=== PATIENT | male | born 1935 | race Caucasian/White ===

== ENCOUNTER 2016-08-20 16:39 | Observation (INO) ==
[2016-08-20] MEDS ORDERED: Aspirin 81 MG TAB.CHEW PO ONE (17:28)
[2016-08-20 18:38] LABS: Basophils % 0.6 %; Eosinophils # 0.2 K/mcL (0.0-0.6); Eosinophils % 3.3 %; Hemoglobin 11.2 g/dL (12.9-16.9); Immature Granulocytes % 1.5 % (0-4); Lymphocytes # 1.5 K/mcL (0.6-4.6); Lymphocytes % 30.1 %; Mean Corpuscular HGB Conc 32.9 g/dL (31.6-35.5); Mean Corpuscular Hemoglobin 31.9 pg (28.0-33.3); Mean Corpuscular Volume 96.9 fL (83.0-100.0); Mean Platelet Volume 9.6 fL (9.4-12.4); Monocytes # 0.4 K/mcL (0.0-1.3); Monocytes % 8.9 %; Neutrophils # 2.7 K/mcL (1.6-8.9); Platelet Count 209 K/mcL (140-400); Red Blood Count 3.51 M/mcL (4.19-5.50); Red Cell Distribution Width 12.5 % (11.5-14.5); Segmented Neutrophils % 55.6 %
[2016-08-20 18:47] LABS: Prothrombin Time 10.7 Seconds (9.4-12.1)
[2016-08-20 18:50] LABS: Activated Partial Thrombo Time 19.6 Seconds (26.0-36.0)
[2016-08-20 18:52] LABS: Calcium 9.2 mg/dL (8.6-10.8); Potassium 4.5 mEq/L (3.5-4.5)
--- NOTE | 2016-08-20 18:55 | Emergency Department Note ---
Disposition Clinical Impression: Chest pain, rule out acute myocardial infarction Disposition: Still a Patient Condition: Good [facility]Primary Care Provider[facility] - Forms: ED Satisfaction Letter Chest Pain HPI - General Chief Complaint: ED Chest Pain Stated Complaint: Chest pain Time Seen by Provider: 08/20/16 16:49 Source: patient, family Mode of arrival: ambulatory Limitations: age, other Vital Signs Reviewed: Yes Nursing Notes Reviewed: Yes - History of Present Illness HPI Narrative: 81-year-old male presents with concerns of chest pain. Patient states that he developed chest pain that was described as a left sternal pressure associated with nausea, diaphoresis and shortness of breath last night. He was evaluated at [facility] and was observed overnight with multiple negative troponins. Patient states after leaving [facility] he had worsening neck and left shoulder pain. He states that this pain improves with nitroglycerin but then returns shortly thereafter. Severity scale (1-10): 0 - Related Data Home Medications Medication Instructions Recorded Confirmed Aspirin Enteric Coated [Aspirin EC] 81 mg PO DAILY 05/10/15 11/22/15 Carvedilol [Coreg] 6.25 mg PO BID 05/10/15 11/22/15 Clopidogrel [Plavix] 75 mg PO DAILY 05/10/15 11/22/15 Finasteride [Proscar] 5 mg PO DAILY 05/10/15 11/22/15 Fluticasone Propionate Nasal 50 mcg NS DAILY 05/10/15 11/22/15 [Flonase] Furosemide [Lasix] 40 mg PO DAILY 05/10/15 11/22/15 Isosorbide MONOnitrate (24 HR) 180 mg PO DAILY 05/10/15 11/22/15 [Imdur] Levothyroxine [Synthroid] 112 mcg PO DAILY 05/10/15 11/22/15 Magnesium Oxide [Mag-Ox] 400 mg PO BID 05/10/15 11/22/15 Nitroglycerin [Nitrostat] 0.4 mg SL Q5M PRN 05/10/15 11/22/15 Pantoprazole Sodium 40 mg PO DAILY 05/10/15 11/22/15 Potassium Chloride 20 meq PO DAILY 05/10/15 11/22/15 Ranolazine [Ranexa] 1,000 mg PO BID 05/10/15 11/22/15 TraZODone 250 mg PO HS 05/10/15 11/22/15 Venlafaxine [Effexor] 75 mg PO BID 05/10/15 11/22/15 Vit B Cmplx 3/FA/Vit C/Biotin 1 tab PO DAILY 05/10/15 11/22/15 [[employer] Rx Tablet] Amlodipine Besylate 2.5 mg PO DAILY 11/22/15 11/22/15 Atorvastatin Calcium [Lipitor] 80 mg PO HS 11/22/15 11/22/15 Ergocalciferol (VITAMIN D2) 400 unit PO DAILY 11/22/15 11/22/15 [Vitamin D] Polyethylene Glycol 3350 [MiraLAX] 17 gm PO DAILY 11/22/15 11/22/15 Previous Rx's Medication Instructions Recorded Multivit/Ca/Min/Fe/FA [Thera M 1 tab PO DAILY tablet 06/26/15 Plus] Allergies Allergy/AdvReac Type Severity Reaction Status Date / Time gabapentin Allergy Nausea Verified 11/22/15 09:18 lisinopril Allergy Anaphylaxis Verified 11/22/15 09:18 pregabalin [From Lyrica] Allergy See Verified 11/22/15 09:18 Comments All systems ED: reviewed and negative except as stated. Constitutional: Denies: fever, chills, weakness Cardiovascular: Reports: chest pain, dyspnea on exertion. Denies: palpitations , syncope, paroxysmal nocturnal dyspnea Respiratory: Denies: cough, dyspnea, wheezes Gastrointestinal: Denies: abdominal pain, nausea Genitourinary: Denies: urgency, dysuria Musculoskeletal: Reports: neck pain Integumentary: Denies: rash, abrasion Neurological: Denies: weakness, numbness, paresthesias Chest Pain PMH - Past Medical History Medical history: Reports: cardiomyopathy, CHF, coronary artery disease, CVA, diabetes, GERD, hyperlipidemia, hypertension, myocardial infarction, thyroid disease Surgical history: Reports: cholecystectomy, coronary bypass (CABG), pacemaker/ AICD Psychiatric history: Reports: PTSD - Social History Smoking Status: Former smoker Alcohol use: Reports: none Drug use: Reports: none Physical Exam General: Alert and in no acute distress Skin: Warm, dry, intact Head: Normocephalic and atraumatic Neck: Supple, trachea midline and no tenderness Cardiovascular: RRR, no murmur, normal perfusion Respiratory: CTAB, no wheezing, cough, or respiratory distress Musculoskeletal: Normal strength, no tenderness, swelling or deformity GI: Soft, nontender, nondistended. Bowel sounds present Neuro: A&O to person, place, time and situation. No focal deficits noted on exam Psychiatric: cooperative and appropriate mood and affect. - General Limitations: age, other Course Vital Signs Temperature 98.1 F 08/20/16 16:42 Pulse Rate 72 08/20/16 16:42 Respiratory Rate 18 08/20/16 16:42 Blood Pressure 132/76 08/20/16 16:42 O2 Sat by Pulse Oximetry 97 08/20/16 16:42 Temperature 98.1 F 08/20/16 16:42 Pulse Rate 69 08/20/16 18:48 Respiratory Rate 18 08/20/16 18:48 Blood Pressure 113/66 08/20/16 18:48 O2 Sat by Pulse Oximetry 97 08/20/16 18:48 Oxygen Delivery Oxygen Delivery Room Air Chest Pain - Medical Records Medical records reviewed: Yes I reviewed the patient's medical records. - Lab Data Lab results reviewed: Yes I reviewed the patient's lab results. Result diagrams: 08/20/16 18:31 08/20/16 18:31 Lab Results 08/20/16 08/20/16 08/20/16 Range/Units 18:31 18:31 18:31 WBC 4.8 (4.3-11.1) K/mcL RBC 3.51 L (4.19-5.50) M/mcL Hgb 11.2 L (12.9-16.9) g/dL Hct 34.0 L (37.5-50.1) % MCV 96.9 (83.0-100.0) fL MCH 31.9 (28.0-33.3) pg MCHC 32.9 (31.6-35.5) g/dL RDW 12.5 (11.5-14.5) % Plt Count 209 (140-400) K/mcL MPV 9.6 (9.4-12.4) fL Immature Gran % 1.5 (0-4) % Seg Neutrophils % 55.6 % Lymphocytes % 30.1 % Monocytes % 8.9 % Eosinophils % 3.3 % Basophils % 0.6 % Neutrophils # 2.7 (1.6-8.9) K/mcL Lymphocytes # 1.5 (0.6-4.6) K/mcL Monocytes # 0.4 (0.0-1.3) K/mcL Eosinophils # 0.2 (0.0-0.6) K/mcL Basophils # 0.0 (0.0-0.2) K/mcL PT 10.7 (9.4-12.1) Seconds INR 1.0 APTT 19.6 L (26.0-36.0) Seconds Sodium 137 (136-145) mEq/L Potassium 4.5 (3.5-4.5) mEq/L Chloride 105 (98-109) mEq/L Carbon Dioxide 23 (19-29) mEq/L BUN 19 (8-26) mg/dL Creatinine 1.47 H (0.72-1.25) mg/dL Est GFR ( Amer) 56 L (> 60) Est GFR (Non-Af Amer) 46 L (> 60) BUN/Creatinine Ratio 13 (6-26) Glucose 190 H (70-99) mg/dL Calculated Osmolality 291 (280-300) Calcium 9.2 (8.6-10.8) mg/dL Troponin I (0-0.03) ng/mL 08/20/16 Range/Units 18:31 WBC (4.3-11.1) K/mcL RBC (4.19-5.50) M/mcL Hgb (12.9-16.9) g/dL Hct (37.5-50.1) % MCV (83.0-100.0) fL MCH (28.0-33.3) pg MCHC (31.6-35.5) g/dL RDW (11.5-14.5) % Plt Count (140-400) K/mcL MPV (9.4-12.4) fL Immature Gran % (0-4) % Seg Neutrophils % % Lymphocytes % % Monocytes % % Eosinophils % % Basophils % % Neutrophils # (1.6-8.9) K/mcL Lymphocytes # (0.6-4.6) K/mcL Monocytes # (0.0-1.3) K/mcL Eosinophils # (0.0-0.6) K/mcL Basophils # (0.0-0.2) K/mcL PT (9.4-12.1) Seconds INR APTT (26.0-36.0) Seconds Sodium (136-145) mEq/L Potassium (3.5-4.5) mEq/L Chloride (98-109) mEq/L Carbon Dioxide (19-29) mEq/L BUN (8-26) mg/dL Creatinine (0.72-1.25) mg/dL Est GFR ( Amer) (> 60) Est GFR (Non-Af Amer) (> 60) BUN/Creatinine Ratio (6-26) Glucose (70-99) mg/dL Calculated Osmolality (280-300) Calcium (8.6-10.8) mg/dL Troponin I 0.02 (0-0.03) ng/mL - Radiology Data Radiology results reviewed: Yes I reviewed the patient's radiology results. - EKG Data EKG attestation: Yes I reviewed and interpreted this EKG. EKG results narrative: ECG - interpreted by ED physician. Rate 73 AV paced, no STEMI Heart Score - Score History: Moderately Suspicious EKG: Normal Age: Greater than 65 Risk Factors: Equal/Greater than 3 risk factor or history of atherosclerotic disease Troponin: Less than normal limit HEART Score Total: 5 S.B.A.R. - S.B.A.R. Transition of Care: 1900: Patient signed out to Day physician pending labs and dispo
--- NOTE | 2016-08-20 19:07 | Emergency Department Note ---
Disposition Clinical Impression: Chest pain, rule out acute myocardial infarction Disposition: Still a Patient Condition: Good [facility]errals: [facility] [Primary Care Provider[facility] - Forms: ED Satisfaction Letter General Adult HPI - General Chief complaint: ED Chest Pain Stated complaint: Chest pain Time Seen by Provider: 08/20/16 16:49 Source: patient, family Mode of arrival: ambulatory Limitations: age, other - History of Present Illness Pain Scale: 0 - Related Data Home Medications Medication Instructions Recorded Confirmed Aspirin Enteric Coated [Aspirin EC] 81 mg PO DAILY 05/10/15 11/22/15 Carvedilol [Coreg] 6.25 mg PO BID 05/10/15 11/22/15 Clopidogrel [Plavix] 75 mg PO DAILY 05/10/15 11/22/15 Finasteride [Proscar] 5 mg PO DAILY 05/10/15 11/22/15 Fluticasone Propionate Nasal 50 mcg NS DAILY 05/10/15 11/22/15 [Flonase] Furosemide [Lasix] 40 mg PO DAILY 05/10/15 11/22/15 Isosorbide MONOnitrate (24 HR) 180 mg PO DAILY 05/10/15 11/22/15 [Imdur] Levothyroxine [Synthroid] 112 mcg PO DAILY 05/10/15 11/22/15 Magnesium Oxide [Mag-Ox] 400 mg PO BID 05/10/15 11/22/15 Nitroglycerin [Nitrostat] 0.4 mg SL Q5M PRN 05/10/15 11/22/15 Pantoprazole Sodium 40 mg PO DAILY 05/10/15 11/22/15 Potassium Chloride 20 meq PO DAILY 05/10/15 11/22/15 Ranolazine [Ranexa] 1,000 mg PO BID 05/10/15 11/22/15 TraZODone 250 mg PO HS 05/10/15 11/22/15 Venlafaxine [Effexor] 75 mg PO BID 05/10/15 11/22/15 Vit B Cmplx 3/FA/Vit C/Biotin 1 tab PO DAILY 05/10/15 11/22/15 [Body Shop Worker-[employer] Rx Tablet] Amlodipine Besylate 2.5 mg PO DAILY 11/22/15 11/22/15 Atorvastatin Calcium [Lipitor] 80 mg PO HS 11/22/15 11/22/15 Ergocalciferol (VITAMIN D2) 400 unit PO DAILY 11/22/15 11/22/15 [Vitamin D] Polyethylene Glycol 3350 [MiraLAX] 17 gm PO DAILY 11/22/15 11/22/15 Previous Rx's Medication Instructions Recorded Multivit/Ca/Min/Fe/FA [Thera M 1 tab PO DAILY tablet 06/26/15 Plus] Allergies Allergy/AdvReac Type Severity Reaction Status Date / Time gabapentin Allergy Nausea Verified 11/22/15 09:18 lisinopril Allergy Anaphylaxis Verified 11/22/15 09:18 pregabalin [From Lyrica] Allergy See Verified 11/22/15 09:18 Comments Past Medical History - Past Medical History Medical history: Reports: cardiomyopathy, CHF, coronary artery disease, CVA, diabetes, GERD, hyperlipidemia, hypertension, myocardial infarction, thyroid disease Surgical history: Reports: cholecystectomy, coronary bypass (CABG), pacemaker/ AICD Psychiatric history: Reports: PTSD - Social History Smoking Status: Former smoker Smokeless Tobacco Status: No Alcohol use: Reports: none Drug use: Reports: none Physical Exam - General Limitations: age, other Course Vital Signs Temperature 98.1 F 08/20/16 16:42 Pulse Rate 72 08/20/16 16:42 Respiratory Rate 18 08/20/16 16:42 Blood Pressure 132/76 08/20/16 16:42 O2 Sat by Pulse Oximetry 97 08/20/16 16:42 Temperature 98.1 F 08/20/16 16:42 Pulse Rate 69 08/20/16 18:48 Respiratory Rate 18 08/20/16 18:48 Blood Pressure 113/66 08/20/16 18:48 O2 Sat by Pulse Oximetry 97 08/20/16 18:48 Oxygen Delivery Oxygen Delivery Room Air Medical Decision Making - Lab Data Result diagrams: 08/20/16 18:31 08/20/16 18:31 Lab Results 08/20/16 08/20/16 08/20/16 Range/Units 18:31 18:31 18:31 WBC 4.8 (4.3-11.1) K/mcL RBC 3.51 L (4.19-5.50) M/mcL Hgb 11.2 L (12.9-16.9) g/dL Hct 34.0 L (37.5-50.1) % MCV 96.9 (83.0-100.0) fL MCH 31.9 (28.0-33.3) pg MCHC 32.9 (31.6-35.5) g/dL RDW 12.5 (11.5-14.5) % Plt Count 209 (140-400) K/mcL MPV 9.6 (9.4-12.4) fL Immature Gran % 1.5 (0-4) % Seg Neutrophils % 55.6 % Lymphocytes % 30.1 % Monocytes % 8.9 % Eosinophils % 3.3 % Basophils % 0.6 % Neutrophils # 2.7 (1.6-8.9) K/mcL Lymphocytes # 1.5 (0.6-4.6) K/mcL Monocytes # 0.4 (0.0-1.3) K/mcL Eosinophils # 0.2 (0.0-0.6) K/mcL Basophils # 0.0 (0.0-0.2) K/mcL PT 10.7 (9.4-12.1) Seconds INR 1.0 APTT 19.6 L (26.0-36.0) Seconds Sodium 137 (136-145) mEq/L Potassium 4.5 (3.5-4.5) mEq/L Chloride 105 (98-109) mEq/L Carbon Dioxide 23 (19-29) mEq/L BUN 19 (8-26) mg/dL Creatinine 1.47 H (0.72-1.25) mg/dL Est GFR ( Amer) 56 L (> 60) Est GFR (Non-Af Amer) 46 L (> 60) BUN/Creatinine Ratio 13 (6-26) Glucose 190 H (70-99) mg/dL Calculated Osmolality 291 (280-300) Calcium 9.2 (8.6-10.8) mg/dL Troponin I (0-0.03) ng/mL 08/20/16 Range/Units 18:31 WBC (4.3-11.1) K/mcL RBC (4.19-5.50) M/mcL Hgb (12.9-16.9) g/dL Hct (37.5-50.1) % MCV (83.0-100.0) fL MCH (28.0-33.3) pg MCHC (31.6-35.5) g/dL RDW (11.5-14.5) % Plt Count (140-400) K/mcL MPV (9.4-12.4) fL Immature Gran % (0-4) % Seg Neutrophils % % Lymphocytes % % Monocytes % % Eosinophils % % Basophils % % Neutrophils # (1.6-8.9) K/mcL Lymphocytes # (0.6-4.6) K/mcL Monocytes # (0.0-1.3) K/mcL Eosinophils # (0.0-0.6) K/mcL Basophils # (0.0-0.2) K/mcL PT (9.4-12.1) Seconds INR APTT (26.0-36.0) Seconds Sodium (136-145) mEq/L Potassium (3.5-4.5) mEq/L Chloride (98-109) mEq/L Carbon Dioxide (19-29) mEq/L BUN (8-26) mg/dL Creatinine (0.72-1.25) mg/dL Est GFR ( Amer) (> 60) Est GFR (Non-Af Amer) (> 60) BUN/Creatinine Ratio (6-26) Glucose (70-99) mg/dL Calculated Osmolality (280-300) Calcium (8.6-10.8) mg/dL Troponin I 0.02 (0-0.03) ng/mL Attestation Statement - Attestation Attestation: Care assumed from at 7 PM pending troponin. Patient with a history of coronary artery disease, pacemaker presents with intermittent chest pain and left-sided neck pain. He was concerned that his pain is cardiac. He sees Dr. Estrada. He denies pain at the time of my exam. He is resting comfortably. Labs reviewed by me showing chronic renal insufficiency. EKG shows paced rhythm. I will request admission to the medicine service 19:30: Rianna Aquino accepts admission
[2016-08-20] MEDS ORDERED: Naloxone 0.4 MG/ML INJ IVP PRN (21:52)
[2016-08-20] MEDS ORDERED: Acetaminophen 325 MG TABLET PO PRN (21:52)
[2016-08-20] MEDS ORDERED: *HR* Morphine 2 MG/ML SYRINGE IVP PRN (21:59)
[2016-08-20] MEDS ORDERED: Dextrose Gel 15 GM PO PRN ×2 (21:59)
[2016-08-20] MEDS ORDERED: Nitroglycerin 0.4 MG TAB.SUBL SL PRN (21:59)
[2016-08-20] MEDS ORDERED: *HR* Dextrose 50 % in Water (Syg) 50 ML SYRINGE IVP PRN (21:59)
[2016-08-20] MEDS ORDERED: D5% in Water 1,000 ML IV PRN (21:59)
--- NOTE | 2016-08-20 22:17 | Internal Med History&Physical ---
Date of Encounter: 08/20/16 Time of Encounter: 21:30 Assessment and Plan (1) Unstable angina Current visit: Yes Status: Acute Suspect the patient has unstable angina. Trend troponins. Pt is known to have occlusive CAD, not amenable to revascularization. Treatment with enoxaparin 0.75 mg/Kg Q12H. continue aspirin Plavix. Patient is already on Ranexa and high -dose of ISMN. Cardiology consultation. (2) Abdominal pain Current visit: Yes Status: Acute Patient has a long history of abdominal pain but is getting worse. Patient is concerned about the abdominal pain. No prior CT scan of the abdomen and the current system. Will obtain CT scan of the abdomen/pelvis with oral contrast ( no IV contrast due to CKD) Qualifiers: Abdominal location: left upper quadrant Qualified Code(s): R10.12 - Left upper quadrant pain (3) Chest pain Current visit: No Status: Acute Possible unstable angina. Trend troponins. Qualifiers: Chest pain type: chest pain due to myocardial ischemia Ischemic chest pain type: unstable angina pectoris Qualified Code(s): I20.0 - Unstable angina (4) CAD in [place] artery Current visit: No Status: Chronic Pt is known to have occlusive CAD. Continue ASA, clopidogrel, ISMN, Ranexa and beta darron (5) CHF (congestive heart failure) Current visit: No Status: Chronic Recent echo showed LVEF of 40-45%. No acute exacerbation Qualifiers: Congestive heart failure type: systolic Congestive heart failure chronicity : chronic Qualified Code(s): I50.22 - Chronic systolic (congestive) heart failure (6) CKD (chronic kidney disease) Current visit: No Status: Chronic Monitor renal function. Avoid nephrotoxic meds Qualifiers: Chronic kidney disease stage: stage 3 (moderate) Qualified Code(s): N18.3 - Chronic kidney disease, stage 3 (moderate) (7) Hypothyroidism Current visit: No Status: Chronic Continue Synthroid Qualifiers: Hypothyroidism type: unspecified Qualified Code(s): E03.9 - Hypothyroidism , unspecified (8) Pacemaker Current visit: No Status: Chronic (9) Type 2 diabetes mellitus Current visit: No Status: Chronic Start on sliding scale insulin Qualifiers: Diabetes mellitus complication status: with neurologic complications Diabetes mellitus complication detail: with polyneuropathy Diabetes mellitus mcfp insulin use: without terminal operations supervisor use Qualified Code(s): E11.42 - Type 2 diabetes mellitus with diabetic polyneuropathy (10) Pulmonary nodule Current visit: Yes Status: Acute Patient had chest x-ray done at the [facility] on 08/19/16, which reported 8 millimeters nodular density overlying the lower thoracic vertebral body on lateral view, not seen on prior imaging. The finding most likely represent confluence of shadows but pulmonary nodule cannot be excluded. Further evaluation with the chest CT or reevaluation at the follow-up chest x- rays is recommended. Chest x-ray (single view) done in this admission did not report pulmonary nodule.. (11) DVT prophylaxis Current visit: Yes Status: Acute Internal Medicine - H&P: HPI Chief complaint: Chest pain Admitted From: Home Plans for Post Hospital Care: Home History of present illness: Mr. Allen is a 81 year old male With PMH significant for cardiomyopathy ( ischemic), CHF (Echo: (07/21/16): LVEF: 40-45%. Basal to mid inferior and inferoseptal segments hypokinetic) s/p AICD / pacemaker, coronary artery disease s/p CABG, CVA, diabetes, GERD, hyperlipidemia, hypertension, hypothyroidism. He reports chest pain for a few days and needed to use nitroglycerine frequently. The day before yesterday, he was exposed to cold, while he was trying to get into his car. He had chest pain and used nitroglycerine x 3 and went to [facility]. He reports that he had a chest x-ray and was told that it was abnormal. He apparently did not like the care and left. He presents to the ER with h/o left sided chest pain / pressure, radiating to the neck and left facial numbness; unrelated to exertion used nitroglycerine without relief, but went away spontaneously. Reports intermittent shortness of breath and nausea. No vomiting. No cough / expectoration / fever / chills. He reports pain in the left upper quadrant and lower quadrant area 8/10. He reports abdominal pain for many months but a little worse. Apparently he was evaluated by lead data entry operator in the past. He reports BPH and frequent urination. No significant change to bowel habits constipation followed by loose stools. He was evaluated in the ER troponin was negative. Admitted to the hospitalist for further management. I have reviewed the CXR result from [facility] - Patient had chest x-ray done at the [facility] on 08/19/16, which reported 8 millimeters nodular density overlying the lower thoracic vertebral body on lateral view, not seen on prior imaging. The finding most likely represent confluence of shadows but pulmonary nodule cannot be excluded. Further evaluation with the chest CT or reevaluation at the follow-up chest x-rays is recommended. Past Med Surg Social Fam HX - Past Medical History Medical history: cardiomyopathy, CHF, coronary artery disease, CVA, diabetes, GERD, hyperlipidemia, hypertension, myocardial infarction, thyroid disease Psychiatric history: PTSD - Past Surgical History Surgical History: cholecystectomy, coronary bypass (CABG), pacemaker/AICD - Social History Smoking Status: Former smoker Smokeless Tobacco Status: No Alcohol use: none Drug use: none - Family History Father Living Status: Hx Family Cardiac Disorders: Yes Mother Living Status: Hx Family Cardiac Disorders: Yes Hx Family Respiratory Disorders: Yes Hx Family Cancer: Yes Hx Family GI Disorders: No Hx Family Endocrine Disorder: Yes Hx Family Neuromuscular Disorders: No Hx Family Neurologic Disorders: No Hx Family HEENT Disorders: No Hx Family Autoimmune Disorders: No Internal Medicine - H&P: Meds Aspirin Enteric Coated [Aspirin EC] 81 mg PO DAILY 05/10/15 [History] Carvedilol [Coreg] 6.25 mg PO BID 05/10/15 [History] Clopidogrel [Plavix] 75 mg PO DAILY 05/10/15 [History] Finasteride [Proscar] 5 mg PO DAILY 05/10/15 [History] Fluticasone Propionate Nasal [Flonase] 50 mcg NS DAILY 05/10/15 [History] Furosemide [Lasix] 40 mg PO DAILY 05/10/15 [History] Isosorbide MONOnitrate (24 HR) [Imdur] 180 mg PO DAILY 05/10/15 [History] Levothyroxine [Synthroid] 112 mcg PO DAILY 05/10/15 [History] Magnesium Oxide [Mag-Ox] 400 mg PO BID 05/10/15 [History] Nitroglycerin [Nitrostat] 0.4 mg SL Q5M PRN 05/10/15 [History] Pantoprazole Sodium 40 mg PO DAILY 05/10/15 [History] Potassium Chloride 20 meq PO DAILY 05/10/15 [History] Ranolazine [Ranexa] 1,000 mg PO BID 05/10/15 [History] TraZODone 250 mg PO HS 05/10/15 [History] Venlafaxine [Effexor] 75 mg PO BID 05/10/15 [History] Vit B Cmplx 3/FA/Vit C/Biotin [[employer] Rx Tablet] 1 tab PO DAILY 05/10/15 [ History] Multivit/Ca/Min/Fe/FA [Thera M Plus] 1 tab PO DAILY tablet 06/26/15 [Rx] Amlodipine Besylate 2.5 mg PO DAILY 11/22/15 [History] Atorvastatin Calcium [Lipitor] 80 mg PO HS 11/22/15 [History] Ergocalciferol (VITAMIN D2) [Vitamin D] 400 unit PO DAILY 11/22/15 [History] Polyethylene Glycol 3350 [MiraLAX] 17 gm PO DAILY 11/22/15 [History] Allergies gabapentin Allergy (Verified 11/22/15 09:18) Nausea lisinopril Allergy (Verified 11/22/15 09:18) Anaphylaxis pregabalin [From Lyrica] Allergy (Verified 11/22/15 09:18) See Comments jerking All Systems PM: A 10-system review of systems was performed and is negative for pertinent findings except as documented above in the HPI. - Constitutional Vitals: Temp Pulse Resp BP Pulse Ox 97.4 F L 69 16 138/77 97 08/20/16 21:21 08/20/16 21:21 08/20/16 21:21 08/20/16 21:21 08/20/16 21:21 Exam: General: Not in acute distress at the time of my evaluation HEENT: Oral mucosa is moist. No conjunctival palor or scleral icterus Neck: No obvious neck swellings Lungs: Clear to auscultation Cardiac: Regular rate and rhythm. No significant murmurs. No chest wall tenderness Abdomen: Soft, mild left abdominal tenderness. Bowel sounds present Genitourinary: No vasquez catheter Neurological: Alert and oriented. No gross localizing deficits Psych: Not agrressive or agitated Extremities: trace leg edema Skin: No generalized rash Internal Med - H&P Results - Labs CBC & Chem 7: 08/20/16 18:31 08/20/16 18:31 Labs: Laboratory Last Values WBC 4.8 K/mcL (4.3-11.1) 08/20/16 18:31 RBC 3.51 M/mcL (4.19-5.50) L 08/20/16 18:31 Hgb 11.2 g/dL (12.9-16.9) L 08/20/16 18:31 Hct 34.0 % (37.5-50.1) L 08/20/16 18:31 MCV 96.9 fL (83.0-100.0) 08/20/16 18:31 MCH 31.9 pg (28.0-33.3) 08/20/16 18:31 MCHC 32.9 g/dL (31.6-35.5) 08/20/16 18:31 RDW 12.5 % (11.5-14.5) 08/20/16 18:31 Plt Count 209 K/mcL (140-400) 08/20/16 18:31 MPV 9.6 fL (9.4-12.4) 08/20/16 18:31 Immature Gran % 1.5 % (0-4) 08/20/16 18:31 Seg Neutrophils % 55.6 % 08/20/16 18:31 Lymphocytes % 30.1 % 08/20/16 18:31 Monocytes % 8.9 % 08/20/16 18:31 Eosinophils % 3.3 % 08/20/16 18:31 Basophils % 0.6 % 08/20/16 18:31 Neutrophils # 2.7 K/mcL (1.6-8.9) 08/20/16 18:31 Lymphocytes # 1.5 K/mcL (0.6-4.6) 08/20/16 18:31 Monocytes # 0.4 K/mcL (0.0-1.3) 08/20/16 18:31 Eosinophils # 0.2 K/mcL (0.0-0.6) 08/20/16 18:31 Basophils # 0.0 K/mcL (0.0-0.2) 08/20/16 18:31 PT 10.7 Seconds (9.4-12.1) 08/20/16 18:31 INR 1.0 08/20/16 18:31 APTT 19.6 Seconds (26.0-36.0) L 08/20/16 18:31 Sodium 137 mEq/L (136-145) 08/20/16 18:31 Potassium 4.5 mEq/L (3.5-4.5) 08/20/16 18:31 Chloride 105 mEq/L (98-109) 08/20/16 18:31 Carbon Dioxide 23 mEq/L (19-29) 08/20/16 18:31 BUN 19 mg/dL (8-26) 08/20/16 18:31 Creatinine 1.47 mg/dL (0.72-1.25) H 08/20/16 18:31 Est GFR ( Amer) 56 (> 60) L 08/20/16 18:31 Est GFR (Non-Af Amer) 46 (> 60) L 08/20/16 18:31 BUN/Creatinine Ratio 13 (6-26) 08/20/16 18:31 Glucose 190 mg/dL (70-99) H 08/20/16 18:31 POC Glucose 142 (58-89) H 08/20/16 22:45 Calculated Osmolality 291 (280-300) 08/20/16 18:31 Calcium 9.2 mg/dL (8.6-10.8) 08/20/16 18:31 Troponin I 0.02 ng/mL (0-0.03) 08/20/16 22:10 - EKG Data EKG comments: Paced rhythm 08/20/16 22:19 - Impressions ITS Impressions Chest X-Ray 08/20/16 17:28 IMPRESSION: No acute process. D/ / Mark Collins MD / Mark Collins MD Interpreting Provider: Mark Collins MD
[2016-08-21] MEDS ORDERED: traZODone 50 MG TABLET PO SCH (03:18)
[2016-08-21] MEDS ORDERED: Enoxaparin Weight Dosing SQ SCH (06:00)
[2016-08-21] MEDS: Insulin LISPRO 300 UNITS/3 ML VIAL SQ SCH ×2 (07:39→12:33)
[2016-08-21] MEDS ORDERED: Cholecalciferol (D-3) 1,000 UNIT TABLET PO SCH (09:00)
[2016-08-21] MEDS ORDERED: BIOTIN PO SCH (09:00)
[2016-08-21] MEDS ORDERED: Ranolazine 500 MG TAB.ER.12H PO SCH (09:00)
[2016-08-21] MEDS ORDERED: Multivit/Ca/Min/Fe/FA 1 TAB TABLET PO SCH (09:00)
[2016-08-21] MEDS ORDERED: Furosemide 40 MG TABLET PO SCH (09:00)
[2016-08-21] MEDS ORDERED: Aspirin Enteric Coated 81 MG Tablet PO SCH (09:00)
[2016-08-21] MEDS ORDERED: [UNRECOGNIZED DRUG - OTHER] PO SCH (09:00)
[2016-08-21] MEDS ORDERED: Isosorbide MONOnitrate (24 HR) 60 MG TAB.ER.24H PO SCH ×2 (09:00→09:57)
[2016-08-21] MEDS ORDERED: Finasteride 5 MG TABLET PO SCH (09:00)
[2016-08-21] MEDS ORDERED: VIT B CMPLX PO SCH (09:00)
[2016-08-21] MEDS ORDERED: amLODIPine 5 MG TABLET PO SCH (09:00)
[2016-08-21] MEDS ORDERED: Fluticasone Propionate Nasal 50 MCG/SPRAY BOTTLE NS SCH (09:00)
[2016-08-21] MEDS ORDERED: Magnesium Oxide 400 MG TABLET PO SCH (09:00)
--- NOTE | 2016-08-21 09:24 | Cardiology Consult Note ---
<Ibrahima Jack Sara - Last Filed: 08/21/16 09:51> Date of Encounter: 08/21/16 Time of Encounter: 09:23 Assessment and Plan (1) Chest pain Current Visit: Yes Status: Acute Patient reports chronic chest pain. Troponin negative x 3. EKG paced--no change from prior. [facility] 06/2015 Left main 50% stenosis. LAD proximal 80% and mid 100% stenosis. D1 90% stenosis. Circumflex proximal 99% and mid 100% stenosis (right to left collaterals noted). Ramus 100% stenosis (left to left collaterals). RCA proximal mid and distal in-stent restenosis ranging from 40-50%. RPDA 95% stenosis (small vessel). RPL 99% stenosis (small vessel). BUSH to mid LAD patent. SVG grafts occluded. Known hx of significant CAD, prior CABG, redo CABG, and multiple PCI's. Catheterization performed in June 2015 demonstrated significant CAD as described above. No targets for revascularization noted. Medical therapy was recommended. Continue aspirin, Plavix, statin, beta darron, Imdur, and Ranexa therapy. Pt is currently on Imdur 180mg daily. Will increase to 240mg daily. He is on Ranexa 1000mg BID. Recent limited echo 06/2016 shows mildly improved EF, previously 35%, now 40-45% . No further cardiac work-up is warranted as inpt. Recommend close outpt follow-up with Dr. Estrada. Cardiology is signing off. Reconsult PRN. Qualifiers: Chest pain type: chest pain due to myocardial ischemia Ischemic chest pain type: unstable angina pectoris Qualified Code(s): I20.0 - Unstable angina (2) CAD (coronary artery disease) of artery bypass graft Current Visit: No Status: Chronic Most recent [facility] 06/2015--details above. Medical management recommended. ASA, Statin, BB, Plavix, Imdur, Ranexa. Increase Imdur to 240mg daily. Qualifiers: [place] vs. transplanted heart: [place] heart Associated angina: with unspecified angina Qualified Code(s): I25.709 - Atherosclerosis of coronary artery bypass graft(s), unspecified, with unspecified angina pectoris (3) CHF (congestive heart failure) Current Visit: Yes Status: Chronic Recent echo showed LVEF of 40-45%. No acute exacerbation. Pt is euvolemic on exam. Continue BB, Aldactone, Lasix. Qualifiers: Congestive heart failure type: systolic Congestive heart failure chronicity : chronic Qualified Code(s): I50.22 - Chronic systolic (congestive) heart failure (4) Ischemic cardiomyopathy Current Visit: Yes Status: Chronic Limited echo 06/2016 EF 40-45% (previously 35%). BiV-ICD in place. Continue BB, Aldactone, Lasix. No SANTY-I/ARB due to hx of anaphylaxis with SANTY-I. (5) ICD (implantable cardioverter-defibrillator), biventricular, in situ Current Visit: Yes Status: Acute ICD interrogation 05/31/2016: Normal device function. No sustained arrhythmias. Biventricular pacing 98.5%. Discussion w patient/family: The assessment and plan as outlined above was discussed with the patient and/or family members who expressed understanding and agreement. All questions were answered. Thank you for involving us in the care of your patient. Please call with any questions. I will discuss all the above with Dr. Zimmerman and make changes as necessary. History of Present Illness Consult date: 08/21/16 Requesting physician: Devorah Majano Consult reason: chest pain Chief complaint: chest pain History of present illness: Mr. Allen is a 81 year old male with a history of CAD, 4 prior MIs, prior CABG , redo CABG, and multiple PCI's (6 stents per patient). Despite revascularization and medical therapy, EF remained 35%. Pacemaker upgraded to a biventricular ICD in November 2015. Hx of CVA, diabetes, GERD, hyperlipidemia, hypertension, hypothyroidism. He reports chest pain for a few days and needed to use nitroglycerine frequently. The day before yesterday he had chest pain and used nitroglycerine x 3 and went to [facility]. He had a chest x-ray and was told that it was abnormal. He was not happy with his care there and left. He presents to the ER with complaints left sided chest pain / pressure, radiating to the neck and left facial numbness; unrelated to exertion used nitroglycerine without relief, but went away spontaneously. Reports intermittent shortness of breath and nausea. No vomiting. He states he has chronic angina. He follows closely with Dr. Estrada as outpt. Recent limited echo revealed EF mildly improved to 40-45%. Despite definity not all segments were well visualized. Grossly, there was basal to mid inferior wall hypokinesis. Reports states to consider cardiac MRI if clinically indicated. Follow-up scheduled with Dr. Estrada next month. Most recent [facility] 06/2015 medical management was recommended. Troponins have been negative x 3. Past Med Surg Social Fam HX - Past Medical History Medical history: cardiomyopathy, CHF, coronary artery disease, CVA, diabetes, GERD, hyperlipidemia, hypertension, myocardial infarction, thyroid disease Psychiatric history: PTSD - Past Surgical History Surgical History: angioplasty/stent, cholecystectomy, coronary bypass (CABG), pacemaker/AICD - Social History Smoking Status: Former smoker Smokeless Tobacco Status: No Alcohol use: none Drug use: none - Family History Father Living Status: Hx Family Cardiac Disorders: Yes Mother Living Status: Hx Family Cardiac Disorders: Yes Hx Family Respiratory Disorders: Yes Hx Family Cancer: Yes Hx Family GI Disorders: No Hx Family Endocrine Disorder: Yes Hx Family Neuromuscular Disorders: No Hx Family Neurologic Disorders: No Hx Family HEENT Disorders: No Hx Family Autoimmune Disorders: No Medications and Allergies Aspirin Enteric Coated [Aspirin EC] 81 mg PO DAILY 05/10/15 [History] Carvedilol [Coreg] 6.25 mg PO BID 05/10/15 [History] Clopidogrel [Plavix] 75 mg PO DAILY 05/10/15 [History] Finasteride [Proscar] 5 mg PO DAILY 05/10/15 [History] Fluticasone Propionate Nasal [Flonase] 50 mcg NS DAILY 05/10/15 [History] Furosemide [Lasix] 40 mg PO DAILY 05/10/15 [History] Isosorbide MONOnitrate (24 HR) [Imdur] 180 mg PO DAILY 05/10/15 [History] Levothyroxine [Synthroid] 112 mcg PO DAILY 05/10/15 [History] Magnesium Oxide [Mag-Ox] 400 mg PO BID 05/10/15 [History] Nitroglycerin [Nitrostat] 0.4 mg SL Q5M PRN 05/10/15 [History] Pantoprazole Sodium 40 mg PO DAILY 05/10/15 [History] Potassium Chloride 20 meq PO DAILY 05/10/15 [History] Ranolazine [Ranexa] 1,000 mg PO BID 05/10/15 [History] TraZODone 250 mg PO HS 05/10/15 [History] Venlafaxine [Effexor] 75 mg PO BID 05/10/15 [History] Vit B Cmplx 3/FA/Vit C/Biotin [[employer] [facility] Tablet] 1 tab PO DAILY 05/10/15 [ History] Multivit/Ca/Min/Fe/FA [Thera M Plus] 1 tab PO DAILY tablet 06/26/15 [Rx] Amlodipine Besylate 2.5 mg PO DAILY 11/22/15 [History] Atorvastatin Calcium [Lipitor] 80 mg PO HS 11/22/15 [History] Ergocalciferol (VITAMIN D2) [Vitamin D] 400 unit PO DAILY 11/22/15 [History] Polyethylene Glycol 3350 [MiraLAX] 17 gm PO DAILY 11/22/15 [History] Allergies gabapentin Allergy (Verified 11/22/15 09:18) Nausea lisinopril Allergy (Verified 11/22/15 09:18) Anaphylaxis pregabalin [From Lyrica] Allergy (Verified 11/22/15 09:18) See Comments jerking All Systems Review: A 10-system review of systems was performed and is negative for pertinent findings except as documented above in the HPI. - Cardiovascular Cardiovascular: as per HPI, chest pain at rest, chest pain with exertion, dyspnea on exertion, radiating jaw, neck or arm pain - Gastrointestinal Gastrointestinal: nausea Physical Examination Vital Signs, Last 4 Hours Temp Pulse Resp BP Pulse Ox 08/21/16 07:15 97.5 F L 81 18 136/77 97 Vital Signs Temp Pulse Resp BP Pulse Ox 08/21/16 07:15 97.5 F L 81 18 136/77 97 08/20/16 21:21 97.4 F L 69 16 138/77 97 08/20/16 20:03 18 109/65 08/20/16 18:48 69 18 113/66 97 08/20/16 16:42 98.1 F 72 18 132/76 97 Intake and Output 08/20/16 08/21/16 08/21/16 23:59 07:59 15:59 Intake Total 240 / 240 Output Total 400 / 400 Balance -400 / -400 240 / 240 Intake: Oral 240 / 240 Output: Urine 400 / 400 Other: Meal Breakfast Percent of Meal Consumed 75% # Voids 2 Weight 92.079 kg 82.9 kg Blood Glucose* 142 125 Patient Weight 08/21/16 23:59 Weight 82.9 kg General: Conversant, No Apparent Distress HEENT: Atraumatic, Normocephaly, Mucus Membranes Moist Neck: No JVD, Normal carotid pulses Cardiac: Reg Rate and Rhythm, Normal S1 and S2, No Murmur Lungs: Normal Breath Sounds, No Wheeze, Rales, Rhonchi Neuro: Alert and responsive, No focal deficits noted Abdomen: Soft, Non-Tender Skin: No rashes noted on visualized skin Musculoskeletal: No Chest Wall Tenderness Extremities: No Clubbing, No Cyanosis, No Edema, Normal Pulses Results 08/20/16 18:31 08/20/16 18:31 Lab Results 08/20/16 08/21/16 22:10 03:51 Troponin I 0.02 0.02 Short CBC 08/20/16 Range/Units 18:31 WBC 4.8 (4.3-11.1) K/mcL Hgb 11.2 L (12.9-16.9) g/dL Hct 34.0 L (37.5-50.1) % Plt Count 209 (140-400) K/mcL Neutrophils # 2.7 (1.6-8.9) K/mcL BMP 08/20/16 Range/Units 18:31 Sodium 137 (136-145) mEq/L Potassium 4.5 (3.5-4.5) mEq/L Chloride 105 (98-109) mEq/L Carbon Dioxide 23 (19-29) mEq/L BUN 19 (8-26) mg/dL Creatinine 1.47 H (0.72-1.25) mg/dL Glucose 190 H (70-99) mg/dL Calcium 9.2 (8.6-10.8) mg/dL Cardiac Enzymes 08/21/16 08/20/16 08/20/16 Range/Units 03:51 22:10 18:31 Troponin I 0.02 0.02 0.02 (0-0.03) ng/mL Impressions Chest X-Ray 08/20/16 17:28 IMPRESSION: No acute process. D/ / Mark Collins MD / Mark Collins MD Interpreting Provider: Mark Collins MD Active Medications Acetaminophen (Tylenol) 650 mg PO Q6HR PRN PRN Reason: Mild Pain (1-3); fever Stop: 02/19/17 21:53 Amlodipine Besylate (Norvasc) 2.5 mg PO DAILY [facility] Stop: 02/20/17 09:01 Aspirin (Aspirin Ec) 81 mg PO DAILY [facility] Stop: 02/20/17 09:01 Atorvastatin Calcium (Lipitor) 80 mg PO HS [facility] Stop: 02/20/17 21:01 Carvedilol (Coreg) 6.25 mg PO BID [facility] PRN Reason: Protocol Stop: 02/20/17 09:01 Clopidogrel Bisulfate (Plavix) 75 mg PO DAILY [facility] Stop: 02/20/17 09:01 Dextrose/Water (Dextrose 50% (Syg)) 25 ml IVP AD PRN PRN Reason: Hypoglycemia Stop: 02/19/17 22:00 Enoxaparin Sodium (Lovenox) 70 mg 0.75 mg/kg (70 mg) SQ Q12HCO [facility] PRN Reason: Protocol Stop: 02/20/17 22:04 Finasteride (Proscar) 5 mg PO DAILY [facility] PRN Reason: Protocol Stop: 02/20/17 09:01 Fluticasone Propionate (Flonase) 50 mcg NS DAILY [facility] PRN Reason: Protocol Stop: 02/20/17 09:01 Furosemide (Lasix) 40 mg PO DAILY [facility] Stop: 02/20/17 09:01 Glucagon (Glucagen) 1 mg IM ONCE PRN PRN Reason: Hypoglycemia Stop: 02/19/17 22:00 Glucose (Gluctose) 15 gm PO ONCE PRN PRN Reason: Hypoglycemia Stop: 02/19/17 22:00 Glucose (Gluctose) 30 gm PO ONCE PRN PRN Reason: Hypoglycemia Stop: 02/19/17 22:00 Dextrose (Dextrose 5%) 1,000 mls @ 100 mls/hr IV CONT PRN PRN Reason: HYPOGLYCEMIA Stop: 02/19/17 22:00 Insulin Human Lispro (Humalog) 0 units SQ TIDAC [facility] PRN Reason: Protocol Stop: 02/20/17 07:31 Last Admin: 08/21/16 07:39 Dose: Not Given Isosorbide Mononitrate (Imdur) 180 mg PO DAILY [facility] Stop: 02/20/17 09:01 Levothyroxine Sodium (Synthroid) 112 mcg PO DAILY@0630 [facility] Stop: 02/20/17 09:01 Magnesium Oxide (Mag-Ox) 400 mg PO BID [facility] PRN Reason: Protocol Stop: 02/20/17 09:01 Morphine Sulfate (Morphine Sulfate) 2 mg IVP Q2H PRN PRN Reason: Chest Pain Stop: 02/19/17 22:00 Multivitamins/Calcium (Thera M Plus) 1 tab PO DAILY [facility] PRN Reason: Protocol Stop: 02/20/17 09:01 Naloxone HCl (Narcan) 0.4 mg IVP Q2MIN PRN PRN Reason: Opioid Reversal Stop: 02/19/17 21:53 Nitroglycerin (Nitroglycerin) 0.4 mg SL Q5MIN PRN PRN Reason: Chest Pain Stop: 02/19/17 22:00 (Vit B Cmplx 3/Fa/Vit C/Biotin [[employer] [facility] [place] [facility] Tablet] 1 ) 1 tab PO DAILY [facility] Stop: 02/20/17 09:01 Omeprazole (Prilosec) 20 mg PO DAILY [facility] Stop: 02/20/17 09:01 Polyethylene Glycol (Miralax) 17 gm PO DAILY [facility] Stop: 02/20/17 09:01 Potassium Chloride (Potassium Chloride) 20 meq PO DAILY [facility] Stop: 02/20/17 09:01 Ranolazine (Ranexa) 1,000 mg PO BID [facility] Stop: 02/20/17 09:01 Trazodone HCl (Trazodone) 250 mg PO HS [facility] Stop: 02/20/17 03:19 Last Admin: 08/21/16 03:51 Dose: 250 mg Venlafaxine HCl (Effexor) 75 mg PO BID [facility] Stop: 02/20/17 09:01 Vitamin D (Vitamin D) 1,000 unit PO DAILY [facility] Stop: 02/20/17 09:01 - Imaging and Cardiology Chest Xray: report reviewed Echo: report reviewed (Limited echo revealed EF mildly improved to 40-45%. Despite definity not all segments were well visualized. Grossly, there was basal to mid inferior wall hypokinesis. Reports states to consider cardiac MRI if clinically indicated.) Cardiac cath: report reviewed ([facility] performed on 06/25/2015: Left main 50% stenosis. LAD proximal 80% and mid 100% stenosis. D1 90% stenosis. Circumflex proximal 99% and mid 100% stenosis (right to left collaterals noted). Ramus 100 % stenosis (left to left collaterals). RCA proximal mid and distal in-stent restenosis ranging from 40-50%. RPDA 95% stenosis (small vessel). RPL 99% stenosis (small vessel). BUSH to mid LAD patent. SVG grafts occluded. Medical therapy recommended.) - EKG Interpretation EKG results cardiology: personally reviewed (Paced, no significant changes from prior.), other (12 hour tele AVG HR 70, no significant pauses or arrhythmias.) Consult Discharge Plan - Plan [facility] Provider[facility] - <Ramon Zimmerman - Last Filed: 08/21/16 11:25> Date of Encounter: 08/21/16 Assessment and Plan Discussion w patient/family: The assessment and plan as outlined above was discussed with the patient and/or family members who expressed understanding and agreement. All questions were answered. Thank you for involving us in the care of your patient. Please call with any questions. History of Present Illness History of present illness: Mr. Allen is a 81 year old male All Systems Review: A 10-system review of systems was performed and is negative for pertinent findings except as documented above in the HPI. Results 08/20/16 18:31 08/20/16 18:31 Lab Results 08/20/16 08/21/16 08/21/16 22:10 03:51 10:03 Troponin I 0.02 0.02 0.01 - Attending Attestation patient seen and examined patient's chest pain is better history is limited because of previous CVA and possibledementia Vital signs are stable Lungs are clear to auscultation Heart S1-S2 is heard does no S3 no murmurs gallops abdomen is soft nontendEKG reviewed by me showed no acute changes Impression Chest pain probably chronic angina microvascular Status post CABG Both stents plan Increased in the door to max dose continue other medicatiFollow-up with primary wage conciliator in the office
[2016-08-21 11:22] VITALS: BP 124/74
--- NOTE | 2016-08-21 12:27 | Discharge Summary ---
Date of Encounter: 08/21/16 Time of Encounter: 12:00 - Discharge Diagnosis (1) Unstable angina Priority: Primary Status: Resolved Comments: Patient denied chest pain or shortness of breath at time of discharge. Chest x- ray negative. Troponins negative. Seen by cardiology who recommended increasing his Imdur and following up outpatient. (2) Pulmonary nodule Priority: Primary Status: Acute Comments: Nonurgent, recommend repeat CT scan in 6-12 months. Patient stopped smoking back in the 70s. ITS Impressions Abdomen/Pelvis CT 08/21/16 09:15 IMPRESSION: No urinary tract calculi or obstruction. Diverticulosis without acute diverticulitis. Normal appendix. Cholecystectomy. Small clustered noncalcified pulmonary nodules in the right lower lobe, 1 of which measuring 3.9 mm in the other measuring 5.7 mm. Recommend follow up based on Fleischner criteria as below. 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 Diffuse atherosclerotic disease. RECOMMENDATIONS: Fleischner Society guidelines for follow-up and management of pulmonary nodule: Nodule size equals 4-6 mm In a low-risk patient, follow-up CT at 12 months; if unchanged, no further follow-up. In a high-risk patient, initial follow-up CT at 6-12 months then at 18-24 months if no change. Low risk patients include individuals with minimal or absent history of smoking and other known risk factors. High risk patients include individuals with a history of smoking or other known risk factors. Radiology 2005; 237:395-400 D/ / Walter Bustamante MD / Walter Bustamante MD Interpreting Provider: Walter Bustamante MD (3) Abdominal pain Priority: Primary Status: Acute Comments: Acute on chronic to left upper and left lower quadrants. Abdominal CT unremarkable for acute processes. Follow-up outpatient. Patient endorsed a regular appetite and by mouth intake prior to discharge. Possible GI referral at primary care provider's discretion. No acute processes during this admission Qualifiers: Abdominal location: left upper quadrant Qualified Code(s): R10.12 - Left upper quadrant pain (4) DVT prophylaxis Priority: Primary Status: Acute Comments: Subcutaneous Lovenox while admitted (5) ICD (implantable cardioverter-defibrillator) in place Priority: Secondary Status: Chronic Comments: Per cardiology report, ICD was interrogated on 05/31/16 and was functioning normally. (6) CHF (congestive heart failure) Priority: Secondary Status: Chronic Comments: Recent echocardiogram revealing ejection fraction of 40-45%. No acute exacerbation, euvolemic on examination throughout this admission. Continue beta darron, Aldactone, Lasix. Follow-up outpatient. Qualifiers: Congestive heart failure type: systolic Congestive heart failure chronicity : chronic Qualified Code(s): I50.22 - Chronic systolic (congestive) heart failure (7) CAD (coronary artery disease) of artery bypass graft Priority: Secondary Status: Chronic Qualifiers: [place] vs. transplanted heart: jamul heart Associated angina: with unspecified angina Qualified Code(s): I25.709 - Atherosclerosis of coronary artery bypass graft(s), unspecified, with unspecified angina pectoris (8) CKD (chronic kidney disease) Priority: Secondary Status: Chronic Comments: Chronic, stable and consistent with his baseline. Follow-up outpatient. (9) Hypothyroidism Priority: Secondary Status: Chronic Comments: No recent TSH on file at [facility], recommended close outpatient follow-up and recheck with primary care team Qualifiers: Hypothyroidism type: unspecified Qualified Code(s): E03.9 - Hypothyroidism , unspecified (10) Type 2 diabetes mellitus Priority: Secondary Status: Chronic Comments: Controlled, A1c 6.4%, recommended continued follow-up outpatient. Qualifiers: Diabetes mellitus complication status: with neurologic complications Diabetes mellitus complication detail: with polyneuropathy Diabetes mellitus longterm insulin use: without laborer marine terminal use Qualified Code(s): E11.42 - Type 2 diabetes mellitus with diabetic polyneuropathy - Discharge Medications Prescriptions: Isosorbide MONOnitrate (24 HR) [Imdur] 240 mg PO DAILY #120 tab.er.24h Home Medications: Aspirin Enteric Coated [Aspirin EC] 81 mg PO DAILY 05/10/15 [History] Carvedilol [Coreg] 6.25 mg PO BID 05/10/15 [History] Clopidogrel [Plavix] 75 mg PO DAILY 05/10/15 [History] Finasteride [Proscar] 5 mg PO DAILY 05/10/15 [History] Fluticasone Propionate Nasal [Flonase] 50 mcg NS DAILY 05/10/15 [History] Furosemide [Lasix] 40 mg PO DAILY 05/10/15 [History] Levothyroxine [Synthroid] 112 mcg PO DAILY 05/10/15 [History] Magnesium Oxide [Mag-Ox] 400 mg PO BID 05/10/15 [History] Nitroglycerin [Nitrostat] 0.4 mg SL Q5M PRN 05/10/15 [History] Pantoprazole Sodium 40 mg PO DAILY 05/10/15 [History] Potassium Chloride 20 meq PO DAILY 05/10/15 [History] Ranolazine [Ranexa] 1,000 mg PO BID 05/10/15 [History] TraZODone 250 mg PO HS 05/10/15 [History] Venlafaxine [Effexor] 150 mg PO BID 05/10/15 [History] Vit B Cmplx 3/FA/Vit C/Biotin [T[employer] Rx Tablet] 1 tab PO DAILY 05/10/15 [ History] Multivit/Ca/Min/Fe/FA [Thera M Plus] 1 tab PO DAILY tablet 06/26/15 [Rx] Amlodipine Besylate 2.5 mg PO DAILY 11/22/15 [History] Atorvastatin Calcium [Lipitor] 80 mg PO HS 11/22/15 [History] Ergocalciferol (VITAMIN D2) [Vitamin D] 400 unit PO DAILY 11/22/15 [History] Polyethylene Glycol 3350 [MiraLAX] 17 gm PO DAILY 11/22/15 [History] Carbidopa/Levodopa [Carbidopa-Levo 25-100 mg Odt] 1 tab PO TID 08/21/16 [History ] Isosorbide MONOnitrate (24 HR) [Imdur] 240 mg PO DAILY #120 tab.er.24h 08/21/16 [Rx] Allergies/Adverse Reactions: Allergies gabapentin Allergy (Verified 11/22/15 09:18) Nausea lisinopril Allergy (Verified 11/22/15 09:18) Anaphylaxis pregabalin [From Lyrica] Allergy (Verified 11/22/15 09:18) See Comments jerking Procedures/tests Complete & Pending: Procedures Performed prior 72 hours Category Date Time Status CT abd pelvis wo no iv no oral [CT] Routine Cat Scan 08/21/16 09:15 Completed Date of admission: 08/20/16 19:34 [facility] care physician: [facility] Consults: 08/20/16 22:23 Consult to Commercial Real Estate Agent [CONS] Routine Reason for SW Consult: from home with HH, unsure of companyy 08/21/16 00:57 Consult to Cardiology [CONS] Routine Comment: Consulting Provider: Ciaran Virgen Reason for Consult: Unstable Angina Call Completed: No Discharging clinician: Suzie Moore Anticipated date of discharge: 08/21/16 - Patient Status Disposition: Home, Self-Care Condition: Good Functional capacity at discharge: independent ambulation Overall status at discharge: patient is back to baseline - Discharge Instructions Follow Up With: [facility]PCP [Primary Care Provider] - Michael Estrada DO [Partnered Physician] - Additional Instructions: Follow-up with primary care provider within one to 2 weeks, follow up with colorer machine within 1-2 weeks - Diet and Activity Activity: increase activity as tolerated Diet: diabetic diet, low fat, low cholesterol, low salt diet Hospital course: Mr. Allen is a 81 year old male with past medical history of systolic heart failure ejection fraction 40-45%, AICD, CAD status post CABG, CVA, diabetes, GERD, hyperlipidemia, hypertension, hypothyroidism. Patient presented to the emergency department chief complaint chest pain 2-3 days requiring to use his nitroglycerin at home frequently. On the day prior to presentation, he was exposed to the cold while he was trying to get into his car at which time he had chest pain and used nitroglycerin 3 and presented to [facility]. Patient stating the chest x-ray at that hospital was reported as abnormal however he did not like the care he was receiving so he left at that point. Patient presented [facility]'s emergency department with left-sided chest pain/pressure that radiated to his neck and the left side of his face was also numb. Pain was unrelated to exertion and nitroglycerin did not resolve it but went away spontaneously. Patient also endorsed intermittent shortness of breath and nausea without vomiting. Patient denied cough, fever, chills. Patient did complain of left upper quadrant and left lower quadrant abdominal pain he states was chronic. Chest x-ray negative. Patient was admitted to the hospitalist service for further evaluation and management. He was admitted and observed over the course of 2 days. He was seen and evaluated by cardiology who recommended medical management and increasing his Imdur dosage. Patient with known significant CAD with prior CABG , redo CABG, and multiple PCI's. Patient had a left heart catheter in June 2015 that demonstrated a significant CAD but without targets for revascularization present and medical management was recommended. Abdominal pelvic CT was obtained which did not find any acute intra-abdominal processes but did reveal incidental finding of pulmonary nodules, recommend follow-up outpatient with follow-up CT scan 6-12 months from now. Patient stopped smoking cigarettes in the 1970s placing him at lower risk. On day of discharge , patient denied chest pain or shortness of breath. He was discharged home in stable condition with close outpatient follow-up with his colorer machine Dr. Estrada and his primary care team. ITS Impressions Chest X-Ray 08/20/16 17:28 IMPRESSION: No acute process. D/ / Mark Collins MD / Mark Collins MD Interpreting Provider: Mark Collins MD Abdomen/Pelvis CT 08/21/16 09:15 IMPRESSION: No urinary tract calculi or obstruction. Diverticulosis without acute diverticulitis. Normal appendix. Cholecystectomy. Small clustered noncalcified pulmonary nodules in the right lower lobe, 1 of which measuring 3.9 mm in the other measuring 5.7 mm. Recommend follow up based on Fleischner criteria as below. 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 Diffuse atherosclerotic disease. RECOMMENDATIONS: Fleischner Society guidelines for follow-up and management of pulmonary nodules: Nodule size equals 4-6 mm In a low-risk patient, follow-up CT at 12 months; if unchanged, no further follow-up. In a high-risk patient, initial follow-up CT at 6-12 months then at 18-24 months if no change. Low risk patients include individuals with minimal or absent history of smoking and other known risk factors. High risk patients include individuals with a history of smoking or other known risk factors. Radiology 2005; 237:395-400 D/ / Walter Bustamante MD / Walter Bustamante MD Interpreting Provider: Walter Bustamante MD - Time Spent with Patient Total time spent providing and/or coordinating discharge services: - Constitutional Vitals: Temp Pulse Resp BP Pulse Ox 97.5 F L 70 18 124/74 97 08/21/16 11:22 08/21/16 11:22 08/21/16 11:22 08/21/16 11:22 08/21/16 11:22 General appearance: Present: A&O X 3, pleasant, no acute distress, answers questions appropriately - Head Head exam: Present: atraumatic, normocephalic - Eye Eye exam: Present: PERRL, conjuntiva pink, sclera anicteric Pupils: Present: PERRL - Neck Neck exam general surgery: Present: supple, trachea midline. Absent: lymphadenopathy - Respiratory Respiratory exam: Present: CTAB. Absent: accessory muscle use, rales, respiratory distress, rhonchi, wheezes - Cardiovascular Cardiovascular exam: Present: RRR, +S1, +S2, systolic murmur. Absent: diastolic murmur, gallop, rubs - GI/Abdominal GI/Abdominal exam: Present: normal bowel sounds, soft, no peritoneal signs. Absent: distended, tenderness - Extremities Exam Extremities exam: Present: warm, radial pulses palpable and symetrical. Absent : calf tenderness, cyanotic, pedal edema - Neurological Exam Neurological exam: Present: alert, CN II-XII intact, oriented X3, no focal deficits, strengths equal and symetr throughout. Absent: pronater drift, facial droop, speech deficit - Skin Skin exam: Present: dry, intact, normal color, warm
--- NOTE | 2016-08-21 13:23 | Physician Discharge Referral ---
Home Health/Hosp Referral Info Transfer to: Home Health Attending Provider: Deena Moore CNP Provider in Charge Post Discharge: PCP - Diagnosis (1) Unstable angina Priority: Primary Status: Resolved (2) Pulmonary nodule Priority: Primary Status: Acute (3) Abdominal pain Priority: Primary Status: Acute (4) DVT prophylaxis Priority: Primary Status: Acute (5) ICD (implantable cardioverter-defibrillator) in place Priority: Secondary Status: Chronic (6) CHF (congestive heart failure) Priority: Secondary Status: Chronic (7) CAD (coronary artery disease) of artery bypass graft Priority: Secondary Status: Chronic (8) CKD (chronic kidney disease) Priority: Secondary Status: Chronic (9) Hypothyroidism Priority: Secondary Status: Chronic (10) Type 2 diabetes mellitus Priority: Secondary Status: Chronic - Respiratory Orders Smoking Cessation: Smoking cessation has been advised. For more information, call the [employer] Quit Line at 6-662-YRIT-NOW. - Activity Activity Orders: Up ad bryan - Services Needed Following services are medically necessary services: Nursing, Home Health Aide - Transfer Medications Prescriptions: Isosorbide MONOnitrate (24 HR) [Imdur] 240 mg PO DAILY #120 tab.er.24h Home Medications: Aspirin Enteric Coated [Aspirin EC] 81 mg PO DAILY 05/10/15 [History] Carvedilol [Coreg] 6.25 mg PO BID 05/10/15 [History] Clopidogrel [Plavix] 75 mg PO DAILY 05/10/15 [History] Finasteride [Proscar] 5 mg PO DAILY 05/10/15 [History] Fluticasone Propionate Nasal [Flonase] 50 mcg NS DAILY 05/10/15 [History] Furosemide [Lasix] 40 mg PO DAILY 05/10/15 [History] Levothyroxine [Synthroid] 112 mcg PO DAILY 05/10/15 [History] Magnesium Oxide [Mag-Ox] 400 mg PO BID 05/10/15 [History] Nitroglycerin [Nitrostat] 0.4 mg SL Q5M PRN 05/10/15 [History] Pantoprazole Sodium 40 mg PO DAILY 05/10/15 [History] Potassium Chloride 20 meq PO DAILY 05/10/15 [History] Ranolazine [Ranexa] 1,000 mg PO BID 05/10/15 [History] TraZODone 250 mg PO HS 05/10/15 [History] Venlafaxine [Effexor] 150 mg PO BID 05/10/15 [History] Vit B Cmplx 3/FA/Vit C/Biotin [[employer]inter-[employer] Rx Tablet] 1 tab PO DAILY 05/10/15 [ History] Multivit/Ca/Min/Fe/FA [Thera M Plus] 1 tab PO DAILY tablet 06/26/15 [Rx] Amlodipine Besylate 2.5 mg PO DAILY 11/22/15 [History] Atorvastatin Calcium [Lipitor] 80 mg PO HS 11/22/15 [History] Ergocalciferol (VITAMIN D2) [Vitamin D] 400 unit PO DAILY 11/22/15 [History] Polyethylene Glycol 3350 [MiraLAX] 17 gm PO DAILY 11/22/15 [History] Carbidopa/Levodopa [Carbidopa-Levo 25-100 mg Odt] 1 tab PO TID 08/21/16 [History ] Isosorbide MONOnitrate (24 HR) [Imdur] 240 mg PO DAILY #120 tab.er.24h 08/21/16 [Rx] Allergies/Adverse Reactions: Allergies gabapentin Allergy (Verified 11/22/15 09:18) Nausea lisinopril Allergy (Verified 11/22/15 09:18) Anaphylaxis pregabalin [From Lyrica] Allergy (Verified 11/22/15 09:18) See Anastacio guerrero Certification: Further, I certify that my clinical findings support that this patient is homebound (i.e. absences from home require considerable and taxing effort and are for medical reasons or restoration services or infrequently or short duration when for other reasons) because: Homebound Reason: Severity of cardiac or pulmonary status limits activity tolerance Attestation: My signature below is to certify that this patient is under my care and that I, or nurse practitioner, or a physician's assistant executive housekeeper working with me, has a face-to -face encounter with this patient.
--- NOTE | 2016-08-21 16:24 | Electrocardiograph Report ---
[facility] Test Date: 2016-08-20 Pat Name: Vijay Allen Department: [id number] Room: 3B35 Gender: M [employer] Architect: [facility] : 1935 Requested By: Austyn Mccann Order Number: [id number] Reading MD: Austyn Stokes Measurements Intervals [place] Rate: 73 P: 205 OR: 197 QRS: 38 QRSD: 116 T: -40 QT: 401 QTc: 426 Interpretive Statements ELECTRONIC ATRIAL PACEMAKER ELECTRONIC VENTRICULAR PACEMAKER ABNORMAL RHYTHM ECG Electronically Signed On 08-21-16 16:23:23 EST by Austyn Stokes
[2016-08-21] MEDS ORDERED: *HR* Enoxaparin 80 MG/0.8 ML SYRINGE SQ SCH (22:03)
== END 2016-08-21 14:01 | disposition home health service (06) ==
LOC: 3BNU 16:39 → EMEROO 16:39 → 3BNU 20:54
PROVIDERS: ADMIT Nurse Practitioner Family; ATTEND Nurse Practitioner Family

== ENCOUNTER 2017-01-01 16:31 | Inpatient (IN) ==
[2017-01-01 17:36] LABS: Basophils % 0.3 %; Hematocrit 36.1 % (37.5-50.1); Hemoglobin 11.9 g/dL (12.9-16.9); Lymphocytes # 0.7 K/mcL (0.6-4.6); Lymphocytes % 7.1 %; Mean Corpuscular Hemoglobin 32.3 pg (28.0-33.3); Mean Corpuscular Volume 98.1 fL (83.0-100.0); Mean Platelet Volume 9.5 fL (9.4-12.4); Monocytes # 0.3 K/mcL (0.0-1.3); Monocytes % 2.6 %; Neutrophils # 8.8 K/mcL (1.6-8.9); Platelet Count 210 K/mcL (140-400); Red Blood Count 3.68 M/mcL (4.19-5.50); Red Cell Distribution Width 13.1 % (11.5-14.5)
[2017-01-01 17:43] LABS: Prothrombin Time 10.6 Seconds (9.4-12.1)
[2017-01-01 17:46] LABS: Activated Partial Thrombo Time 23.8 Seconds (26.0-36.0)
[2017-01-01 17:55] LABS: Calcium 8.9 mg/dL (8.6-10.8); Potassium 5.4 mEq/L (3.5-4.5)
[2017-01-01] MEDS ORDERED: 0.9 % Sodium Chloride 1,000 ML IVC ONE ×2 (18:26→20:13)
--- NOTE | 2017-01-01 18:29 | Emergency Department Note ---
Disposition Clinical Impression: Herpes zoster, Renal insufficiency, Hyperkalemia, Chest pain, CAD (coronary artery disease), ICD (implantable cardioverter-defibrillator) in place, Type 2 diabetes mellitus, Uncontrolled diabetes mellitus, HLD (hyperlipidemia), HTN ( hypertension), Anemia Disposition: Admitted As Inpatient [facility] - General Adult HPI - General Chief complaint: ED Chest Pain Stated complaint: chest pain, BOB Time Seen by Provider: 01/01/17 18:26 Source: patient Limitations: no limitations - History of Present Illness HPI Narrative: 81-year-old male comes in from his interpreter deaf's office, there is concern for chest pain. The patient has had some shortness of breath as well. No leg swelling or pain or coughing up blood. The patient takes Plavix and aspirin. The patient does not take blood thinners otherwise. He has a known history of coronary disease. He is also diabetic. There is no history of trauma to the chest or chest rash. He is being treated for shingles on the right forehead and facies. He states he has seen an supervisor electric during the course of his shingles care as well. He states he is on eyedrops and shingles medication. There is no history of convulsion or confusion no difficulty moving the arms or legs and independently no abdominal pain vomiting or diarrhea. No acute back pain. The patient denies any previous history of DVT PE or aneurysm. There is no history of fever or confusion. No history of headache neck stiffness or convulsion. Patient took several nitroglycerin tablets today which did not seem to help too much. He states he has a pacemaker in place and his interpreter deaf recommended coming to the ED for further evaluation. Pain Scale: 6 - Related Data Home Medications Medication Instructions Recorded Confirmed Aspirin Enteric Coated [Aspirin EC] 81 mg PO DAILY 05/10/15 08/21/16 Carvedilol [Coreg] 6.25 mg PO BID 05/10/15 08/21/16 Clopidogrel [Plavix] 75 mg PO DAILY 05/10/15 08/21/16 Finasteride [Proscar] 5 mg PO DAILY 05/10/15 08/21/16 Fluticasone Propionate Nasal 50 mcg NS DAILY 05/10/15 08/21/16 [Flonase] Furosemide [Lasix] 40 mg PO DAILY 05/10/15 08/21/16 Levothyroxine [Synthroid] 112 mcg PO DAILY 05/10/15 08/21/16 Magnesium Oxide [Mag-Ox] 400 mg PO BID 05/10/15 08/21/16 Nitroglycerin [Nitrostat] 0.4 mg SL Q5M PRN 05/10/15 08/21/16 Pantoprazole Sodium 40 mg PO DAILY 05/10/15 08/21/16 Potassium Chloride 20 meq PO DAILY 05/10/15 08/21/16 Ranolazine [Ranexa] 1,000 mg PO BID 05/10/15 08/21/16 TraZODone 250 mg PO HS 05/10/15 08/21/16 Venlafaxine [Effexor] 150 mg PO BID 05/10/15 08/21/16 Vit B Cmplx 3/FA/Vit C/Biotin 1 tab PO DAILY 05/10/15 08/21/16 [[employer] Tablet] Amlodipine Besylate 2.5 mg PO DAILY 11/22/15 08/21/16 Atorvastatin Calcium [Lipitor] 80 mg PO HS 11/22/15 08/21/16 Ergocalciferol (VITAMIN D2) 400 unit PO DAILY 11/22/15 08/21/16 [Vitamin D] Polyethylene Glycol 3350 [MiraLAX] 17 gm PO DAILY 11/22/15 08/21/16 Carbidopa/Levodopa [Carbidopa-Levo 1 tab PO TID 08/21/16 08/21/16 25-100 mg Odt] Previous Rx's Medication Instructions Recorded Multivit/Ca/Min/Fe/FA [Thera M 1 tab PO DAILY tablet 06/26/15 Plus] Isosorbide MONOnitrate (24 HR) 240 mg PO DAILY #120 tab.er.24h 08/21/16 [Imdur] Allergies Allergy/AdvReac Type Severity Reaction Status Date / Time gabapentin Allergy Nausea Verified 11/22/15 09:18 lisinopril Allergy Anaphylaxis Verified 11/22/15 09:18 pregabalin [From Lyrica] Allergy See Verified 11/22/15 09:18 Comments All systems ED: reviewed and negative except as stated. Past Medical History - Past Medical History Medical history: Reports: cardiomyopathy, CHF, coronary artery disease, CVA, diabetes, GERD, hyperlipidemia, hypertension, myocardial infarction, thyroid disease Surgical history: Reports: angioplasty/stent, cholecystectomy, coronary bypass ( CABG), pacemaker/AICD Psychiatric history: Reports: PTSD - Social History Smoking Status: Former smoker Smokeless Tobacco Status: No Alcohol use: Reports: none Drug use: Reports: none Physical Exam - General Limitations: no limitations General appearance: alert, in no apparent distress - Head Head exam: atraumatic, normocephalic, normal inspection - Eye Eye exam: Present: PERRL, EOMI, other (Lesions consistent with shingles on the forehead and above the right eye.). Absent: scleral icterus, conjunctival injection, miosis, mydriasis - ENT ENT exam: normal exam, normal oropharynx, mucous membranes moist, TM's normal bilaterally, normal external ear exam - Neck Neck exam: Present: normal inspection, full ROM, trachea midline. Absent: meningismus - Chest Chest inspection: Present: symmetric chest wall rise. Absent: tenderness - Respiratory Respiratory exam: Present: prolonged expiratory phase. Absent: normal lung sounds bilaterally, respiratory distress, wheezes, accessory muscle use - Cardiovascular Cardiovascular exam: Present: regular rate, normal rhythm, normal heart sounds - Abdominal Exam Abdominal exam: Present: soft, Non-Tender, normal bowel sounds. Absent: tenderness, distention, guarding, rebound, rigidity, pulsatile mass - Extremities Exam Extremities exam: Present: normal inspection, full ROM, normal capillary refill. Absent: tenderness, pedal edema, joint swelling, calf tenderness - Expanded Lower Extremity Exam Lower leg exam: Absent: Homans' sign Neurovascular/Tendon exam: Present: normal capillary refill. Absent: motor deficit, sensory deficit, tendon deficit, extremity cold to touch, pallor - Back Exam Back exam: Present: normal inspection, full ROM. Absent: tenderness, CVA tenderness (R), CVA tenderness (L), vertebral tenderness - Neurological Exam Neurological exam: Present: alert, oriented X3, CN II-XII intact. Absent: motor sensory deficit - Psychiatric Psychiatric exam: Present: normal affect, normal mood - Skin Skin exam: Present: warm, dry, intact, normal color, rash (Exposed skin warm and dry without notable acute rash apart from shingles rash on forehead.). Absent: cyanosis, diaphoresis, erythema, pallor, mottled Course Vital Signs Temperature 98 F 01/01/17 16:42 Pulse Rate 77 01/01/17 16:42 Respiratory Rate 16 01/01/17 16:42 Blood Pressure 106/66 01/01/17 16:42 O2 Sat by Pulse Oximetry 97 01/01/17 16:42 Temperature 98 F 01/01/17 16:42 Pulse Rate 72 01/01/17 19:59 Respiratory Rate 16 01/01/17 19:06 Blood Pressure 119/78 01/01/17 19:59 O2 Sat by Pulse Oximetry 98 01/01/17 19:59 Oxygen Delivery Oxygen Delivery Room Air Medical Decision Making - [facility] Narrative Medical decision making narrative: The patient is elderly with multiple cardiovascular comorbidities including previous CAD, hyperlipidemia, hypertension, diabetes mellitus, and age. He is experiencing chest discomfort. His blood sugar is over 600. He has a paced rhythm. Initial troponin negative. Aspirin ordered. Insulin ordered as well as IV fluids. The patient's chest x-ray shows no acute disease. The patient's lactic acid is elevated, IV fluid was ordered, his white count is negative, he does not have evidence of pneumonitis, he is afebrile, his lactic acidosis is less likely to be infectious in nature. Based on his chest discomfort, high risk factors for acute coronary syndrome, and uncontrolled diabetes, and lactic acidosis, I thought it would be appropriate to admit the patient to the hospital. I discussed the case with the hospitalist on-call who has accepted the patient to their care. - Lab Data Lab results reviewed: Yes I reviewed the patient's lab results. Result diagrams: 01/01/17 17:25 01/01/17 17:25 Lab Results 01/01/17 01/01/17 01/01/17 Range/Units 17:25 17:25 17:25 WBC 10.2 (4.3-11.1) K/mcL RBC 3.68 L (4.19-5.50) M/mcL Hgb 11.9 L (12.9-16.9) g/dL Hct 36.1 L (37.5-50.1) % MCV 98.1 (83.0-100.0) fL MCH 32.3 (28.0-33.3) pg MCHC 33.0 (31.6-35.5) g/dL RDW 13.1 (11.5-14.5) % Plt Count 210 (140-400) K/mcL MPV 9.5 (9.4-12.4) fL Immature Gran % 4.0 (0-4) % Seg Neutrophils % 86.0 % Lymphocytes % 7.1 % Monocytes % 2.6 % Eosinophils % 0.0 % Basophils % 0.3 % Neutrophils # 8.8 (1.6-8.9) K/mcL Lymphocytes # 0.7 (0.6-4.6) K/mcL Monocytes # 0.3 (0.0-1.3) K/mcL Eosinophils # 0.0 (0.0-0.6) K/mcL Basophils # 0.0 (0.0-0.2) K/mcL PT 10.6 (9.4-12.1) Seconds INR 1.0 APTT 23.8 L (26.0-36.0) Seconds Sodium 129 L (136-145) mEq/L Potassium 5.4 H (3.5-4.5) mEq/L Chloride 92 L (98-109) mEq/L Carbon Dioxide 23 (19-29) mEq/L BUN 33 H (8-26) mg/dL Creatinine 1.90 H (0.72-1.25) mg/dL Est GFR ( Amer) 42 L (> 60) Est GFR (Non-Af Amer) 34 L (> 60) BUN/Creatinine Ratio 17 (6-26) Glucose 618 H* (70-99) mg/dL Calculated Osmolality 304 H (280-300) Lactic Acid (0.5-2.2) mmol/L Calcium 8.9 (8.6-10.8) mg/dL Total Bilirubin (0.2-1.2) mg/dL Direct Bilirubin (0.0-0.5) mg/dL Indirect Bilirubin (0.0-1.2) mg/dL AST (5-34) Units/L ALT (0-55) Units/L Alkaline Phosphatase (38-126) Units/L Troponin I (0-0.03) ng/mL B-Natriuretic Peptide (0-100) pg/mL Serum Total Protein (6.0-8.3) g/dL Albumin (3.5-5.0) g/dL Globulin (2.4-3.5) g/dL Albumin/Globulin Ratio (1.1-2.2) Lipase (8-78) Units/L Beta-Hydroxybutyric Acd (0.02-0.27) mmol/L TSH 0.435 (0.350-4.840) mcIU/mL 01/01/17 01/01/17 01/01/17 Range/Units 17:25 19:18 19:18 WBC (4.3-11.1) K/mcL RBC (4.19-5.50) M/mcL Hgb (12.9-16.9) g/dL Hct (37.5-50.1) % MCV (83.0-100.0) fL MCH (28.0-33.3) pg MCHC (31.6-35.5) g/dL RDW (11.5-14.5) % Plt Count (140-400) K/mcL MPV (9.4-12.4) fL Immature Gran % (0-4) % Seg Neutrophils % % Lymphocytes % % Monocytes % % Eosinophils % % Basophils % % Neutrophils # (1.6-8.9) K/mcL Lymphocytes # (0.6-4.6) K/mcL Monocytes # (0.0-1.3) K/mcL Eosinophils # (0.0-0.6) K/mcL Basophils # (0.0-0.2) K/mcL PT (9.4-12.1) Seconds INR APTT (26.0-36.0) Seconds Sodium (136-145) mEq/L Potassium (3.5-4.5) mEq/L Chloride (98-109) mEq/L Carbon Dioxide (19-29) mEq/L BUN (8-26) mg/dL Creatinine (0.72-1.25) mg/dL Est GFR ( Amer) (> 60) Est GFR (Non-Af Amer) (> 60) BUN/Creatinine Ratio (6-26) Glucose (70-99) mg/dL Calculated Osmolality (280-300) Lactic Acid 8.0 H* (0.5-2.2) mmol/L Calcium (8.6-10.8) mg/dL Total Bilirubin (0.2-1.2) mg/dL Direct Bilirubin (0.0-0.5) mg/dL Indirect Bilirubin (0.0-1.2) mg/dL AST (5-34) Units/L ALT (0-55) Units/L Alkaline Phosphatase (38-126) Units/L Troponin I 0.02 (0-0.03) ng/mL B-Natriuretic Peptide 238 H (0-100) pg/mL Serum Total Protein (6.0-8.3) g/dL Albumin (3.5-5.0) g/dL Globulin (2.4-3.5) g/dL Albumin/Globulin Ratio (1.1-2.2) Lipase (8-78) Units/L Beta-Hydroxybutyric Acd (0.02-0.27) mmol/L TSH (0.350-4.840) mcIU/mL 01/01/17 01/01/17 Range/Units 19:18 19:18 WBC (4.3-11.1) K/mcL RBC (4.19-5.50) M/mcL Hgb (12.9-16.9) g/dL Hct (37.5-50.1) % MCV (83.0-100.0) fL MCH (28.0-33.3) pg MCHC (31.6-35.5) g/dL RDW (11.5-14.5) % Plt Count (140-400) K/mcL MPV (9.4-12.4) fL Immature Gran % (0-4) % Seg Neutrophils % % Lymphocytes % % Monocytes % % Eosinophils % % Basophils % % Neutrophils # (1.6-8.9) K/mcL Lymphocytes # (0.6-4.6) K/mcL Monocytes # (0.0-1.3) K/mcL Eosinophils # (0.0-0.6) K/mcL Basophils # (0.0-0.2) K/mcL PT (9.4-12.1) Seconds INR APTT (26.0-36.0) Seconds Sodium (136-145) mEq/L Potassium (3.5-4.5) mEq/L Chloride (98-109) mEq/L Carbon Dioxide (19-29) mEq/L BUN (8-26) mg/dL Creatinine (0.72-1.25) mg/dL Est GFR ( Amer) (> 60) Est GFR (Non-Af Amer) (> 60) BUN/Creatinine Ratio (6-26) Glucose (70-99) mg/dL Calculated Osmolality (280-300) Lactic Acid (0.5-2.2) mmol/L Calcium (8.6-10.8) mg/dL Total Bilirubin 0.3 (0.2-1.2) mg/dL Direct Bilirubin 0.2 (0.0-0.5) mg/dL Indirect Bilirubin 0.1 (0.0-1.2) mg/dL AST 12 (5-34) Units/L ALT 13 (0-55) Units/L Alkaline Phosphatase 59 (38-126) Units/L Troponin I (0-0.03) ng/mL B-Natriuretic Peptide (0-100) pg/mL Serum Total Protein 7.4 (6.0-8.3) g/dL Albumin 3.4 L (3.5-5.0) g/dL Globulin 4.0 H (2.4-3.5) g/dL Albumin/Globulin Ratio 0.9 L (1.1-2.2) Lipase 9 (8-78) Units/L Beta-Hydroxybutyric Acd 0.26 (0.02-0.27) mmol/L TSH (0.350-4.840) mcIU/mL - Radiology Data Radiology results reviewed: Yes I reviewed the patient's radiology results.
[2017-01-01 18:37] LABS: Thyroid Stimulating Hormone 0.435 mcIU/mL (0.350-4.840)
[2017-01-01] MEDS ORDERED: Aspirin 325 MG TABLET PO ONE (18:37)
[2017-01-01] MEDS ORDERED: Insulin Regular, Human 100 UNIT/ML SQ ONE (19:18)
[2017-01-01 19:47] LABS: Albumin 3.4 g/dL (3.5-5.0); Albumin/Globulin Ratio 0.9 (1.1-2.2); Bilirubin,Direct 0.2 mg/dL (0.0-0.5); Bilirubin,Indirect 0.1 mg/dL (0.0-1.2); Bilirubin,Total 0.3 mg/dL (0.2-1.2); Total Protein 7.4 g/dL (6.0-8.3)
[2017-01-01 20:10] LABS: Bilirubin,Urine Negative (Negative); Blood,Urine Negative (Negative); Clarity,Urine Clear (Clear); Color,Urine Yellow (Yellow); Glucose,Urine (UA) >=1000 mg/dL (Normal); Ketones,Urine Negative (Negative); Leukocyte Esterase,Urine Negative (Negative); Nitrite,Urine Negative (Negative); Protein,Urine Negative (Neg-Trace); Specific Gravity,Urine 1.025 (1.010-1.025); Urobilinogen,Urine Normal (Normal)
[2017-01-02] MEDS ORDERED: Ipratropium/Albuterol Neb 3 ML IH PRN (03:01)
[2017-01-02] MEDS ORDERED: Nitroglycerin 0.4 MG TAB.SUBL SL PRN (03:01)
[2017-01-02] MEDS ORDERED: Dextrose Gel 15 GM PO PRN ×2 (03:02)
[2017-01-02] MEDS ORDERED: *HR* Dextrose 50 % in Water (Syg) 50 ML SYRINGE IVP PRN (03:02)
[2017-01-02] MEDS ORDERED: Ondansetron 4 MG/2 ML VIAL IVP PRN (03:02)
[2017-01-02] MEDS ORDERED: D5% in Water 1,000 ML IVC PRN (03:02)
[2017-01-02] MEDS ORDERED: Acetaminophen 325 MG TABLET PO PRN (03:02)
[2017-01-02] MEDS ORDERED: Naloxone 0.4 MG/ML INJ IVP PRN (03:02)
[2017-01-02] MEDS ORDERED: *HR* Morphine 2 MG/ML SYRINGE IVP PRN (03:02)
--- NOTE | 2017-01-02 03:18 | Internal Med History&Physical ---
Date of Encounter: 01/02/17 Time of Encounter: 03:15 Assessment and Plan (1) Chest pain Current visit: Yes Status: Acute Continue telemetry, follow troponins Nitroglycerin and morphine as needed, aspirin, Plavix, Imdur Lipid panel, stating Consider stress test when the patient's glucose and lactic acid normalizes Qualifiers: Chest pain type: other chest pain Qualified Code(s): R07.89 - Other chest pain; R07.8 - Other chest pain (2) Lactic acidosis Current visit: Yes Status: Acute Possibly secondary to dehydration in combination with the use of metformin Improving, continue IV fluids X Hold metformin (3) Hyperosmolar non-ketotic state in patient with type 2 diabetes mellitus Current visit: Yes Status: Acute The patient's blood glucose is currently in the 400s Start Levemir 10 units subcutaneous in insulin sliding scale, consider insulin drip if not improving The patient may need to be on insulin from now on, order hemoglobin A1c (4) CAD (coronary artery disease) Current visit: Yes Status: Acute Continue aspirin, Plavix Qualifiers: Coronary Disease-Associated Artery/Lesion type: bypass graft [place] vs. transplanted heart: [place] heart Associated angina: angina presence unspecified Qualified Code(s): I25.810 - Atherosclerosis of coronary artery bypass graft(s) without angina pectoris (5) HLD (hyperlipidemia) Current visit: Yes Status: Acute Qualifiers: Hyperlipidemia type: pure hypercholesterolemia Qualified Code(s): E78.00 - Pure hypercholesterolemia, unspecified; E78.0 - Pure hypercholesterolemia (6) HTN (hypertension) Current visit: Yes Status: Acute Qualifiers: Hypertension type: essential hypertension Qualified Code(s): I10 - Essential (primary) hypertension (7) Herpes zoster Current visit: Yes Status: Acute Followed as outpatient, seen by label printer as well Qualifiers: 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 Allen is a 81 year old male with a past medical history of CAD status post CABG and stents, biventricular ICD due to ischemic cardiomyopathy, systolic CHF with an ejection fraction of 40-45%, comes to the emergency room complaining of left-sided chest pressure that started earlier yesterday morning on and off. The patient had to take in total for nitroglycerin for the patient to improve. He says that he has been very constipated lately and he had to take multiple fiber bars at home, his glucose was found to be 618, he does not use any insulin at home and uses just metformin. His lactic acid was 8 and after some fluid and insulin IV 10 units given at the ER his lactic acid came down to 5.3. CT scan of the chest abdomen and pelvis did not show any acute abnormality. His creatinine has increased to 1.9 from a baseline of 1.47. Potassium was 5.4 sodium was 129 but his corrected sodium is 137. Anion gap was 14. Patient received some aspirin and 10 units of IV insulin. Troponin is negative. EKG does not show any abnormality shows paced rhythm. At the moment he denies any chest pain but complains of mild abdominal discomfort Past Med Surg Social Fam HX - Past Medical History Medical history: cardiomyopathy (Ischemic), CHF (Systolic ejection fraction of 40-45%), coronary artery disease (Status post stents and CABG), CVA, diabetes ( Not insulin-dependent), GERD, hyperlipidemia, hypertension, myocardial infarction, thyroid disease (Hypothyroidism), other (Left adrenal milo lipoma, BPH, PTSD, CVA, chronic kidney disease stage III, depression, right fore head shingles) Psychiatric history: PTSD - Past Surgical History Surgical History: angioplasty/stent, cholecystectomy, coronary bypass (CABG), pacemaker/AICD (Biventricular AICD), other (Back surgery) - Social History Smoking Status: Former smoker Packs per day: Quit smoking many years ago Smokeless Tobacco Status: No Alcohol use: none Drug use: none - Family History Father Living Status: Hx Family Cardiac Disorders: Yes Mother Living Status: Hx Family Cardiac Disorders: Yes Hx Family Respiratory Disorders: Yes Hx Family Cancer: Yes Hx Family GI Disorders: No Hx Family Endocrine Disorder: Yes Hx Family Neuromuscular Disorders: No Hx Family Neurologic Disorders: No Hx Family HEENT Disorders: No Hx Family Autoimmune Disorders: No - Additional Family History Additional family history: Daughter with anxiety and hypertension. Sister with CHF, son with bipolar disorder, mother with diabetes and breast cancer Internal Medicine - H&P: Meds Aspirin Enteric Coated [Aspirin EC] 81 mg PO DAILY 05/10/15 [History] Finasteride [Proscar] 5 mg PO DAILY 05/10/15 [History] Fluticasone Propionate Nasal [Flonase] 100 mcg NS DAILY 05/10/15 [History] Furosemide [Lasix] 40 mg PO DAILY 05/10/15 [History] Pantoprazole Sodium 40 mg PO DAILY 05/10/15 [History] Ranolazine [Ranexa] 1,000 mg PO BID 05/10/15 [History] Amlodipine Besylate 2.5 mg PO DAILY 11/22/15 [History] Albuterol Sulfate [Albuterol Inhaler] 2 puff IH QID PRN 01/01/17 [History] Budesonide/Formoterol 80/4.5 [Symbicort 80/4.5] 2 puff IH BID 01/01/17 [History ] Buspirone HCl [Buspar] 15 mg PO BID 01/01/17 [History] Carbidopa/Levodopa 25/100 [Sinemet 25/100] 1.5 each PO TID 01/01/17 [History] Cyanocobalamin (Vitamin B-12) [Vitamin B12] 1,000 mcg PO DAILY 01/01/17 [History ] GuaiFENesin/Dextromethorphan [Tussin Dm Syrup] 5 ml PO QID PRN 01/01/17 [History ] Selenium Sulfide [Selrx] 1 appl TP MOTH 01/01/17 [History] Spironolactone [Aldactone] 12.5 mg PO DAILY 01/01/17 [History] Trazodone HCl 250 mg PO HS PRN 01/01/17 [History] Venlafaxine XR (24 HR) [Effexor XR] 150 mg PO BID 01/01/17 [History] predniSONE [PredniSONE] 40 mg PO DAILY 01/01/17 [History] Allergies gabapentin Allergy (Verified 11/22/15 09:18) Nausea lisinopril Allergy (Verified 11/22/15 09:18) Anaphylaxis pregabalin [From Lyrica] Allergy (Verified 11/22/15 09:18) See Comments ayush codeine Adverse Reaction (Verified 01/01/17 21:08) See Comments [facility] list All Systems PM: A 10-system review of systems was performed and is negative for pertinent findings except as documented above in the HPI. Review of systems: Abdominal pain, other systems out of the 10 reviewed were negative - Constitutional Vitals: Temp Pulse Resp BP Pulse Ox 97.5 F L 72 16 134/77 98 01/01/17 23:29 01/01/17 23:29 01/01/17 23:29 01/01/17 23:29 01/02/17 00:24 General appearance: Present: A&O X 3 - Head Head exam: Present: atraumatic, normocephalic - Eye Eye exam: Present: PERRL, conjuntiva pink, sclera anicteric Pupils: Present: PERRL - Neck Neck exam general surgery: Present: supple, trachea midline. Absent: lymphadenopathy - Respiratory Respiratory exam: Present: decreased breath sounds, CTAB. Absent: accessory muscle use, rales, rhonchi, wheezes - Cardiovascular Cardiovascular exam: Present: RRR, +S1, +S2. Absent: diastolic murmur, gallop, rubs, systolic murmur - GI/Abdominal GI/Abdominal exam: Present: normal bowel sounds, soft, no peritoneal signs. Absent: distended (Abdominal hernia, not incarcerated), tenderness - Extremities Exam Extremities exam: Present: warm, radial pulses palpable and symetrical. Absent : calf tenderness, cyanotic, pedal edema - Neurological Exam Neurological exam: Present: CN II-XII intact, oriented X3, no focal deficits. Absent: pronater drift, facial droop, speech deficit - Skin Skin exam: Present: dry. Absent: intact (Multiple excoriations and lesions from shingles the right side of his face and forehead not acute) Internal Med - H&P Results - Labs CBC & Chem 7: 01/01/17 17:25 01/01/17 21:46
[2017-01-02] MEDS ORDERED: Lactulose Oral Soln 20 GM/30 ML UDC PO ONE (03:26)
[2017-01-02] MEDS: Insulin LISPRO 300 UNITS/3 ML VIAL SQ SCH ×5 (04:02→20:09)
[2017-01-02] MEDS: traZODone 50 MG TABLET PO PRN (04:03)
[2017-01-02] MEDS: 0.9 % Sodium Chloride 1,000 ML IVC SCH ×2 (04:03→17:06)
[2017-01-02] MEDS: Insulin DETEMIR 100 UNIT/ML X5UNITS SQ SCH ×2 (04:08→20:13)
[2017-01-02 04:39] LABS: Hemoglobin A1C 7.9 %
[2017-01-02 04:46] LABS: BUN/Creatinine Ratio 22 (6-26); Blood Urea Nitrogen 28 mg/dL (8-26); Calcium 8.6 mg/dL (8.6-10.8); Carbon Dioxide 26 mEq/L (19-29); Chloride 101 mEq/L (98-109); Cholesterol 240 mg/dL (< 200); Glucose 293 mg/dL (70-99); HDL Cholesterol 60 mg/dL (40-59); LDL Cholesterol,Calculated 123 mg/dL (0-99); Osmolality,Calculated 294 (280-300); Sodium 134 mEq/L (136-145); Triglycerides 284 mg/dL (< 150); eGFR For African Americans > 60 (> 60); eGFR For Non-African Americans 55 (> 60)
[2017-01-02] MEDS: *HR* Heparin 5,000 UNIT/ML VIAL SQ SCH ×3 (06:18→20:13)
[2017-01-02] MEDS ORDERED: *HR* Heparin 5,000 UNIT/ML VIAL SQ SCH (08:00)
[2017-01-02] MEDS: Ranolazine 500 MG TAB.ER.12H PO SCH ×2 (08:12→20:07)
[2017-01-02] MEDS: amLODIPine 5 MG TABLET PO SCH (08:12)
[2017-01-02] MEDS: Aspirin Enteric Coated 81 MG Tablet PO SCH (08:18)
[2017-01-02] MEDS: Finasteride 5 MG TABLET PO SCH (08:18)
[2017-01-02] MEDS: Venlafaxine XR (24 HR) 150 MG CAP.ER.24H PO SCH ×2 (08:18→20:06)
[2017-01-02] MEDS: predniSONE 20 MG TABLET PO SCH (08:18)
[2017-01-02] MEDS: Carbidopa/Levodopa 25/100 TABLET PO SCH ×3 (08:18→20:06)
[2017-01-02] MEDS: Spironolactone 25 MG TABLET PO SCH (08:19)
--- NOTE | 2017-01-02 09:19 | Event Note ---
Date of Encounter: 01/02/17 Time of Encounter: 09:11 Patient is seen and evaluated at the bedside. 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 Patient is admitted for management of chest pain rule out ACS, lactic acidosis, and hyperglycemia. His workup has not revealed etiology of lactic acidosis, liver function tests, complete blood count are within normal limits. Chemistry showed mild renal insufficiency and hypoglycemia. Anion gap was normal. Patient denies new complaints at time of evaluation, denies diarrhea, denies abdominal pain looks comfortable. Vital signs stable Gen. examination patient is not in any form of distress, speaks full sentences. HEENT: Right crusted herpes zoster lesions from the right forehead to the upper cheek. Chest is clear to auscultation bilaterally. Sounds S1-S2 only, no murmurs gallops or rubs. Abdomen is soft and nontender, no palpably enlarged organs. Extremities extremities show no pedal edema. Labs and imaging reviewed Hyponatremia has improved, hypokalemia has improved kidney function looks improved generally A1c 7.9 lactate has improved to 5.3. Chest, abdomen and pelvis CAT scans unremarkable. Assessment and plan Chest pain, r/o acs, negative trops, obtain ECHO. CHFrEF, monitor closely. Lactic acidosis of unknwon cause, possibly patient with CHF and Dehydration on Metformin, continue gentle hydration, repeat ECHO. LFTs are WNL. Hyperkalemia, monitor Chem, other chronic conditions remain stable
[2017-01-02] MEDS: Budesonide/Formoterol 80/4.5 MDI IH SCH ×2 (10:50→20:15)
--- NOTE | 2017-01-02 11:17 | Electrocardiograph Report ---
[place] [id number] Test Date: 2017-01-01 Pat Name: Vijay Allen Department: 103 Room: 3B Gender: M [employer] Rub[employer] Plate: HEATHER : 1935 Requested By: Espinoza Wise Order Number: [id number] Reading MD: Eva Stokes Measurements Intervals [place] Rate: 76 P: 63 TN: 128 QRS: 106 QRSD: 132 T: 120 QT: 411 QTc: 441 Interpretive Statements ELECTRONIC VENTRICULAR PACEMAKER ABNORMAL RHYTHM ECG Electronically Signed On 01-02-2017 11:15:25 EDT by Eva Stokes
[2017-01-03] MEDS: traZODone 50 MG TABLET PO PRN
[2017-01-03 05:08] LABS: Basophils % 0.2 %; Eosinophils % 0.4 %; Hematocrit 32.9 % (37.5-50.1); Hemoglobin 10.9 g/dL (12.9-16.9); Immature Granulocytes % 4.7 % (0-4); Lymphocytes # 1.9 K/mcL (0.6-4.6); Lymphocytes % 18.4 %; Mean Corpuscular HGB Conc 33.1 g/dL (31.6-35.5); Mean Corpuscular Hemoglobin 31.9 pg (28.0-33.3); Mean Corpuscular Volume 96.2 fL (83.0-100.0); Mean Platelet Volume 9.2 fL (9.4-12.4); Monocytes # 0.6 K/mcL (0.0-1.3); Monocytes % 5.8 %; Neutrophils # 7.1 K/mcL (1.6-8.9); Platelet Count 182 K/mcL (140-400); Red Blood Count 3.42 M/mcL (4.19-5.50); Red Cell Distribution Width 13.4 % (11.5-14.5); Segmented Neutrophils % 70.5 %
[2017-01-03 05:31] LABS: BUN/Creatinine Ratio 17 (6-26); Blood Urea Nitrogen 20 mg/dL (8-26); Calcium 8.8 mg/dL (8.6-10.8); Carbon Dioxide 27 mEq/L (19-29); Chloride 106 mEq/L (98-109); Glucose 167 mg/dL (70-99); Osmolality,Calculated 296 (280-300); Potassium 4.6 mEq/L (3.5-4.5); Sodium 140 mEq/L (136-145); eGFR For African Americans > 60 (> 60); eGFR For Non-African Americans > 60 (> 60)
[2017-01-03] MEDS: *HR* Heparin 5,000 UNIT/ML VIAL SQ SCH (05:50)
[2017-01-03] MEDS: 0.9 % Sodium Chloride 1,000 ML IVC SCH (05:52)
[2017-01-03] MEDS: Insulin LISPRO 300 UNITS/3 ML VIAL SQ SCH (08:51)
[2017-01-03] MEDS: Spironolactone 25 MG TABLET PO SCH (08:51)
[2017-01-03] MEDS: predniSONE 20 MG TABLET PO SCH (08:52)
[2017-01-03] MEDS: Aspirin Enteric Coated 81 MG Tablet PO SCH (08:52)
[2017-01-03] MEDS: amLODIPine 5 MG TABLET PO SCH (08:52)
[2017-01-03] MEDS: Venlafaxine XR (24 HR) 150 MG CAP.ER.24H PO SCH (08:52)
[2017-01-03] MEDS: Carbidopa/Levodopa 25/100 TABLET PO SCH (08:53)
[2017-01-03] MEDS: Ranolazine 500 MG TAB.ER.12H PO SCH (08:53)
[2017-01-03] MEDS: Finasteride 5 MG TABLET PO SCH (08:53)
--- NOTE | 2017-01-03 10:01 | Discharge Summary ---
Date of Encounter: 01/03/17 Time of Encounter: 09:59 - Discharge Diagnosis (1) Hyperosmolar non-ketotic state in patient with type 2 diabetes mellitus Priority: Primary Status: Acute (2) Lactic acidosis Priority: Primary Status: Acute (3) CHF (congestive heart failure) Priority: Secondary Status: Chronic Qualifiers: Congestive heart failure type: systolic Congestive heart failure chronicity : chronic Qualified Code(s): I50.22 - Chronic systolic (congestive) heart failure (4) Chest pain Priority: Primary Status: Acute Qualifiers: Chest pain type: chest pain due to myocardial ischemia Ischemic chest pain type: unstable angina pectoris Qualified Code(s): I20.0 - Unstable angina (5) Type 2 diabetes mellitus Priority: Secondary Status: Chronic Qualifiers: Diabetes mellitus complication status: with hyperglycemia Diabetes mellitus terminal operator insulin use: without halfway use Qualified Code(s): E11.65 - Type 2 diabetes mellitus with hyperglycemia (6) Hypothyroidism Priority: Secondary Status: Chronic Qualifiers: Hypothyroidism type: unspecified Qualified Code(s): E03.9 - Hypothyroidism , unspecified (7) CAD (coronary artery disease) of artery bypass graft Priority: Secondary Status: Chronic Qualifiers: [place] vs. transplanted heart: [place] heart Associated angina: with unspecified angina Qualified Code(s): I25.709 - Atherosclerosis of coronary artery bypass graft(s), unspecified, with unspecified angina pectoris (8) CKD (chronic kidney disease) Priority: Secondary Status: Chronic Qualifiers: Chronic kidney disease stage: stage 3 (moderate) Qualified Code(s): N18.3 - Chronic kidney disease, stage 3 (moderate) (9) Hyperkalemia Priority: Primary Status: Resolved (10) HLD (hyperlipidemia) Priority: Secondary Status: Chronic Qualifiers: Hyperlipidemia type: pure hypercholesterolemia Qualified Code(s): E78.00 - Pure hypercholesterolemia, unspecified; E78.0 - Pure hypercholesterolemia (11) HTN (hypertension) Priority: Secondary Status: Chronic Qualifiers: Hypertension type: essential hypertension Qualified Code(s): I10 - Essential (primary) hypertension - Discharge Medications Prescriptions: SitaGLIPtin [Januvia] 25 mg PO DAILY #30 tablet Home Medications: Aspirin Enteric Coated [Aspirin EC] 81 mg PO DAILY 05/10/15 [History] Finasteride [Proscar] 5 mg PO DAILY 05/10/15 [History] Fluticasone Propionate Nasal [Flonase] 100 mcg NS DAILY 05/10/15 [History] Furosemide [Lasix] 40 mg PO DAILY 05/10/15 [History] Pantoprazole Sodium 40 mg PO DAILY 05/10/15 [History] Ranolazine [Ranexa] 1,000 mg PO BID 05/10/15 [History] Amlodipine Besylate 2.5 mg PO DAILY 11/22/15 [History] Albuterol Sulfate [Albuterol Inhaler] 2 puff IH QID PRN 01/01/17 [History] Budesonide/Formoterol 80/4.5 [Symbicort 80/4.5] 2 puff IH BID 01/01/17 [History ] Buspirone HCl [Buspar] 15 mg PO BID 01/01/17 [History] Carbidopa/Levodopa 25/100 [Sinemet 25/100] 1.5 each PO TID 01/01/17 [History] Cyanocobalamin (Vitamin B-12) [Vitamin B12] 1,000 mcg PO DAILY 01/01/17 [History ] GuaiFENesin/Dextromethorphan [Tussin Dm Syrup] 5 ml PO QID PRN 01/01/17 [History ] Selenium Sulfide [Selrx] 1 appl TP MOTH 01/01/17 [History] Spironolactone [Aldactone] 12.5 mg PO DAILY 01/01/17 [History] Trazodone HCl 250 mg PO HS PRN 01/01/17 [History] Venlafaxine XR (24 HR) [Effexor Xr] 150 mg PO BID 01/01/17 [History] predniSONE [PredniSONE] 40 mg PO DAILY 01/01/17 [History] Atorvastatin Calcium [Lipitor] 80 mg PO HS 01/02/17 [History] Carvedilol [Coreg] 6.25 mg PO BIDWM 01/02/17 [History] Clopidogrel [Plavix] 75 mg PO DAILY 01/02/17 [History] Donepezil [Aricept] 10 mg PO HS 01/02/17 [History] Ergocalciferol (VITAMIN D2) [Vitamin D] 400 unit PO DAILY 01/02/17 [History] Isosorbide MONOnitrate [Isosorbide Mononitrate ER] 240 mg PO DAILY 01/02/17 [ History] Levothyroxine [Synthroid] 112 mcg PO 30 01/02/17 [History] Magnesium Oxide [Mag-Ox] 400 mg PO DAILY 01/02/17 [History] Multivitamin [Multi-Day Vitamins] 1 each PO DAILY 01/02/17 [History] Nitroglycerin [Nitrostat] 0.4 mg SL Q5M PRN 01/02/17 [History] Polyethylene Glycol 3350 [Smoothlax] 17 gm PO DAILY 01/02/17 [History] SitaGLIPtin [Januvia] 25 mg PO DAILY #30 tablet 01/03/17 [Rx] Allergies/Adverse Reactions: Allergies gabapentin Allergy (Verified 11/22/15 09:18) Nausea lisinopril Allergy (Verified 11/22/15 09:18) Anaphylaxis pregabalin [From Lyrica] Allergy (Verified 11/22/15 09:18) See Comments yolanda codeine Adverse Reaction (Verified 01/01/17 21:08) See Comments [facility] list Procedures/tests Complete & Pending: Procedures Performed prior 72 hours Category Date Time Status EV echocardiogram Routine Y 01/03/17 16:17 Completed Date of admission: 01/02/17 04:15 [facility] Discharging clinician: Rip Monge Anticipated date of discharge: 01/03/17 - Patient Status Disposition: Left Against Medical Advice Condition: Fair Functional capacity at discharge: uses cane/walker Overall status at discharge: patient is progressing back to baseline - Discharge Instructions Follow Up With: [facility] [Primary Care Provider] - 01/11/17 10:15 am Forms: ED Satisfaction Letter Additional Instructions: Follow up with CARDIOLOGY - Diet and Activity Activity: resume usual activities as tolerated Diet: diabetic diet, low fat, low cholesterol, low salt diet Interval History: See below Hospital course: Mr. 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 He was sent to the ER for further evaluation. He was fond to have lactic acidosis with lactate of 8, hyperglycemia with glucose >600. His liver function tests, complete blood count are within normal limits. Chemistry showed mild renal insufficiency and hyperglycemia. Anion gap was normal. A1C was 7.9, His abdomen and pelvis imaging and CXR did not reveal any acute processes. EKG was paced. Patient was scheduled for serial troponins, ECHO started on IVF hydration and Metformin was discontinued Today, he was seen at bedside sitting up in chair and having breakfast Patient states " I am going home today no matter what you say". His lactate is 1.7 this morning, troponin has been negative I explained to the patient that he was referred from his security vehicle patrol officer for evaluation for chest pain, and that I was waiting for his ECHO to decide if to consult with cardiology Patient was extremely rude, verbally aggressive and told physician "You are only a hospitalist, you cannot know what you are talking about, I do not want you one foot near me if I ever return to this place. he stated he wanted to speak with the "big nurse"". I have explained his results to him and even though his glucose level is improving, it is not optimal and his even though he does not have chest pain anymore, he will benefit from further work up. He has refused any further investigations, and continued to be extremely verbally aggressive. This was witnessed by some other staff members. Patient has multiple cardiac history and is full code He will be discharged (AMA) to follow up closely with his security vehicle patrol officer Januvia 25mg daily has been started for his diabetes mellitus, His FS ranged from 200-300 on sliding scale insulin and levemir, patient is not ideal candidate for home insulin therapy. Metformin is not noted to be on his home list, but patient had informed admitting physician he was on Metformin, this has since been held Follow up with PCP and his Traffic Personnel Supervisor he has home health nurse, continuity form done Resume other home meds - Time Spent with Patient Total time spent providing and/or coordinating discharge services: Less than 30 minutes - Constitutional Vitals: Temp Pulse Resp BP Pulse Ox 97.5 F L 69 18 149/82 97 01/03/17 07:24 01/03/17 07:24 01/03/17 07:24 01/03/17 07:24 01/03/17 07:24 Vital signs stable Gen. examination patient is not in any form of distress, speaks full sentences. HEENT: Right crusted herpes zoster lesions from the right forehead to the upper cheek. Chest is clear to auscultation bilaterally. ICD in pocket, scar noted Sounds S1-S2 only, no murmurs gallops or rubs. Abdomen is soft and nontender, no palpably enlarged organs. Extremities extremities show no pedal edema. General appearance: Present: A&O X 3
[2017-01-03] MEDS: Budesonide/Formoterol 80/4.5 MDI IH SCH (10:46)
[2017-01-03 11:31] VITALS: BP 117/65
--- NOTE | 2017-01-03 14:12 | Electrocardiograph Report ---
[place] [id number] Test Date: 2017-01-02 Pat Name: Vijay Allne Department: 113 Room: 3B Gender: M Petrophysicist: [id number] : 1935 Requested By: Rip Monge Order Number: [id number] Reading MD: Zeb Oliver MD Measurements Intervals [place] Rate: 72 P: 69 IA: 120 QRS: 83 QRSD: 145 T: 59 QT: 442 QTc: 466 Interpretive Statements ELECTRONIC VENTRICULAR PACEMAKER Electronically Signed On 01-03-2017 14:10:41 EDT by Zeb Oliver MD
--- NOTE | 2017-01-03 16:18 | Physician Discharge Referral ---
Home Health/Hosp Referral Info Transfer to: Home Health Attending Provider: [place] Provider in Charge Post Discharge: PCP - Diagnosis (1) Hyperosmolar non-ketotic state in patient with type 2 diabetes mellitus Priority: Primary Status: Acute (2) Lactic acidosis Priority: Primary Status: Acute (3) CHF (congestive heart failure) Priority: Secondary Status: Chronic (4) Chest pain Priority: Primary Status: Acute (5) Type 2 diabetes mellitus Priority: Secondary Status: Chronic (6) Hypothyroidism Priority: Secondary Status: Chronic (7) CAD (coronary artery disease) of artery bypass graft Priority: Secondary Status: Chronic (8) CKD (chronic kidney disease) Priority: Secondary Status: Chronic (9) Hyperkalemia Priority: Primary Status: Resolved (10) HLD (hyperlipidemia) Priority: Secondary Status: Chronic (11) HTN (hypertension) Priority: Secondary Status: Chronic - Respiratory Orders Smoking Cessation: Smoking cessation has been advised. For more information, call the [place] Tobacco Quit Line at 7-811-LOVZ-NOW. - Transfer Medications Prescriptions: SitaGLIPtin [Januvia] 25 mg PO DAILY #30 tablet Home Medications: Aspirin Enteric Coated [Aspirin EC] 81 mg PO DAILY 05/10/15 [History] Finasteride [Proscar] 5 mg PO DAILY 05/10/15 [History] Fluticasone Propionate Nasal [Flonase] 100 mcg NS DAILY 05/10/15 [History] Furosemide [Lasix] 40 mg PO DAILY 05/10/15 [History] Pantoprazole Sodium 40 mg PO DAILY 05/10/15 [History] Ranolazine [Ranexa] 1,000 mg PO BID 05/10/15 [History] Amlodipine Besylate 2.5 mg PO DAILY 11/22/15 [History] Albuterol Sulfate [Albuterol Inhaler] 2 puff IH QID PRN 01/01/17 [History] Budesonide/Formoterol 80/4.5 [Symbicort 80/4.5] 2 puff IH BID 01/01/17 [History ] Buspirone HCl [Buspar] 15 mg PO BID 01/01/17 [History] Carbidopa/Levodopa 25/100 [Sinemet 25/100] 1.5 each PO TID 01/01/17 [History] Cyanocobalamin (Vitamin B-12) [Vitamin B12] 1,000 mcg PO DAILY 01/01/17 [History ] GuaiFENesin/Dextromethorphan [Tussin Dm Syrup] 5 ml PO QID PRN 01/01/17 [History ] Selenium Sulfide [Selrx] 1 appl TP MOTH 01/01/17 [History] Spironolactone [Aldactone] 12.5 mg PO DAILY 01/01/17 [History] Trazodone HCl 250 mg PO HS PRN 01/01/17 [History] Venlafaxine XR (24 HR) [Effexor Xr] 150 mg PO BID 01/01/17 [History] predniSONE [PredniSONE] 40 mg PO DAILY 01/01/17 [History] Atorvastatin Calcium [Lipitor] 80 mg PO HS 01/02/17 [History] Carvedilol [Coreg] 6.25 mg PO BIDWM 01/02/17 [History] Clopidogrel [Plavix] 75 mg PO DAILY 01/02/17 [History] Donepezil [Aricept] 10 mg PO HS 01/02/17 [History] Ergocalciferol (VITAMIN D2) [Vitamin D] 400 unit PO DAILY 01/02/17 [History] Isosorbide MONOnitrate [Isosorbide Mononitrate ER] 240 mg PO DAILY 01/02/17 [ History] Levothyroxine [Synthroid] 112 mcg PO 0630 01/02/17 [History] Magnesium Oxide [Mag-Ox] 400 mg PO DAILY 01/02/17 [History] Multivitamin [Multi-Day Vitamins] 1 each PO DAILY 01/02/17 [History] Nitroglycerin [Nitrostat] 0.4 mg SL Q5M PRN 01/02/17 [History] Polyethylene Glycol 3350 [Smoothlax] 17 gm PO DAILY 01/02/17 [History] SitaGLIPtin [Januvia] 25 mg PO DAILY #30 tablet 01/03/17 [Rx] Allergies/Adverse Reactions: Allergies gabapentin Allergy (Verified 11/22/15 09:18) Nausea lisinopril Allergy (Verified 11/22/15 09:18) Anaphylaxis pregabalin [From Lyrica] Allergy (Verified 11/22/15 09:18) See Comments jerking codeine Adverse Reaction (Verified 01/01/17 21:08) See Comments [facility] list Certification: Further, I certify that my clinical findings support that this patient is homebound (i.e. absences from home require considerable and taxing effort and are for medical reasons or yazdanism services or infrequently or short duration when for other reasons) because: Homebound Reason: Patient requires assistance of a person or device to safely leave home Attestation: My signature below is to certify that this patient is under my care and that I, or nurse practitioner, or a physician's assistant health educator working with me, has a face-to -face encounter with this patient.
== END 2017-01-03 17:16 | disposition left against medical advice (07) | DRG 638 ==
LOC: EMEROO 16:31 → 3BNU 16:31 → SUATTDRO 01-02 04:15
PROVIDERS: ADMIT Registered Nurse; ATTEND Internal Medicine